=== PATIENT | male | born 1955 | race Caucasian/White ===

== ENCOUNTER 2023-04-22 09:17 | Outpatient (OUT) | payer MEDICARE, SELFPAY ==
--- NOTE | 2023-04-22 09:29 | MR_ITS ---
The [address] [address] Patient Name: SCOTT SMITH MRN: [id number] date: 1955 Sex: M Assigned Patient Location: MRI Current Patient Location: MRI Accession/Order Number: [id number] Exam Date: 04/22/2023 10:00 Report Date: 04/23/2023 14:00 At the request of: VENU PICKERING Procedure: MR foot LT wo/w con EXAM: MR foot LT wo/w con REASON FOR EXAM: neoplasm. TECHNIQUE: Multiplanar, multisequence imaging of the left foot was performed before and after the uneventful intravenous administration of gadolinium contrast COMPARISON: None. FINDINGS: Study mildly degraded by motion as well as large [id number]. At the palpable area concern, there is a somewhat heterogeneous mass within the subcutaneous tissues measuring 1.2 x 2.6 x 3.1 cm. No significant enhancement identified, although there is poor fat saturation at this level. This favors to represent adventitial bursitis. No abnormal marrow signal in the subjacent medial sesamoid bone. The remaining bone marrow signal is without acute fracture or osteonecrosis. The midfoot is congruent with mild osteoarthritis. The plantar musculature demonstrates normal bulk and signal. There is fusiform thickening and intermediate signal of the Achilles tendon with distal Achilles enthesophytes consistent with tendinosis. No tear. Mild chronic plantar fasciopathy with an inferior calcaneal spur. No tear. Mild thickening and intermediate signal of the peroneal tendons likely reflects tendinosis. No tear. The remaining ankle tendons are unremarkable. The Lisfranc ligament is intact. No definite abnormal osseous or soft tissue enhancement identified. MR/MR foot LT wo/w con IMPRESSION: 1. Probable adventitial bursitis identified along the plantar medial aspect of the first MTP joint. No aggressive features identified. No definite evidence of infection. 2. Incidental findings as above. Electronically authenticated by: HOUSTON CAMARENA Date: 04/23/2023 14:00
--- NOTE | 2023-04-22 09:34 | XR_ITS ---
The [address] [address] Patient Name: SCOTT SMITH MRN: [id number] date: 1955 Sex: M Assigned Patient Location: MRI Current Patient Location: MRI Accession/Order Number: [id number] Exam Date: 04/22/2023 09:45 Report Date: 04/22/2023 09:57 At the request of: VENU PICKERING Procedure: XR foreign body eye EXAMINATION: XR foreign body eye HISTORY: foreign body eye COMPARISON: No relevant comparison available. FINDINGS: ORBITS: Negative for a metallic foreign body. OTHER: Negative. XR/XR foreign body eye IMPRESSION: 1. No metallic foreign body within the orbits. Electronically authenticated by: MANASA HEAD Date: 04/22/2023 09:57
[2023-04-22 09:50] LABS: Estimated GFR (African America >60 (>=60); Estimated GFR (Non-African Ame 56 (>=60)
== END 2023-04-22 09:18 | disposition home or self-care (01) ==
LOC: MRI 09:19
PROVIDERS: PCP Family Medicine; Visit Provider Physician Assistant
DX: D49.2 Neoplasm of unspecified behavior of bone, soft tissue, and skin (principal)
CPT/HCPCS: 36415; 70030; 73720; 82565; A9575

== ENCOUNTER 2023-10-12 08:06 | Outpatient (OUT) | payer MEDICARE, SELFPAY ==
--- NOTE | 2023-10-12 | PCN_ITS ---
CARDIAC STRESS TEST Requesting Physician: Zuleyka Walker M.D. Procedure Date: 10/12/2023 PERFORMING PROVIDER: Zuleyka Walker M.D. REASON FOR STRESS TEST: Chest pain, shortness of breath, dyspnea on exertion. STRESS TEST TYPE: Lexiscan myocardial perfusion imaging. Resting EKG: Sinus bradycardia with sinus arrhythmia. Resting heart rate: 64 Peak heart rate: 110 Peak maximal heart rate: 72 Resting blood pressure: 136/70 Peak blood pressure: 182/76 ST changes: No EKG changes meeting the criteria of ischemia. Symptoms reported: None. Arrhythmias: PVCs, PACs. CONCLUSIONS: 1. Resting EKG demonstrates sinus bradycardia with sinus arrhythmia. 2. Treadmill stress test was non-diagnostic due to maximal heart rate not achieved. 3. Lexiscan stress test without definite evidence of ischemia. 4. Please refer to separately interpreted and reported nuclear myocardial perfusion imaging. [facility]
--- NOTE | 2023-10-12 | NM_ITS ---
Patient Name: SCOTT SMITH MR#: [id number] : 1955 Exam Date: 10/12/2023 Ordering Doctor: WINSTON WALKER M.D. RADIOLOGY REPORT PROCEDURE: NM ARMAND PERF SPECT REST STR COMPARISON: None. INDICATIONS: CHEST PAIN, UNSPECIFIED TECHNIQUE: Exam Description: Stress/Rest two day protocol gated SPECT Rest Imagin.9 mCi Tc-99m Cardiolite IV on 10/16/2023 Stress Imaging 26.3 mCi Tc-99m Cardiolite IV on 10/12/2023 Exercise Protocol: 0.4 mg Lexiscan given IV Heart Rate (bpm): Rest: 54 Max: 110 PMHR: 72 Blood Pressure: Rest: 136/70 Max: 182/76 Symptoms: Rest and peak stress ECG findings were normal and the exercise portion of the study was normal per attending physician Dr. Walker . For more details please see separate cardiac stress test report. FINDINGS: QUALITY OF STUDY: Good. PERFUSION DEFECT: LOCATION: Basal inferior. Basal inferolateral. Mid-inferior. Mid-inferolateral. Apical inferior. [place]. SIZE: Large (5 or more segments). SEVERITY: Severe. TYPE: Persistent. WALL MOTION: Normal. LV SIZE: Enlarged; EDV 155 mL. TID / TCD: None; 1.1 LVEF: Normal. Calculated EF 61%. SUMMARY: Myocardial perfusion imaging study has ABNORMAL findings. CONCLUSION: 1. 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 Dilated left ventricle, EDV 155 milliliters 3. Normal exercise test Dictated by: Jose Flynn MD on 10/16/2023 at 12:23 Approved by: Jose Flynn MD on 10/16/2023 at 12:27
--- OUTSIDE RECORDS SUMMARY | 2023-10-12 08:17 | XMS_ITS | CCD ---
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 Name Role Phone ZULEYKA CALLE Admitting Unavailable ALGHOTHSHITAL HALEAMAYady Attending Unavailable HOY, DURGA Primary Care Unavailable HOYDURGA Referring Unavailable HOY, DR CALIXTO Primary Care Unavailable SAMSA, DARIEN Admitting Unavailable SAMSA, DARIEN Attending Unavailable SAMSA, DARIEN Consulting Unavailable HOY, DR CALIXTO Admitting Unavailable HOY, DR CALIXTO Attending Unavailable HOY, DR CALIXTO Primary Care Unavailable HOY, DR CALIXTO Consulting Unavailable HOY, DR CALIXTO Admitting Unavailable HOY, DR CALIXTO Attending Unavailable HOY, DR CALIXTO Primary Care Unavailable HOY, DR CALIXTO Consulting Unavailable WEST, DR WIN Adkins Consulting Unavailable HOY, DR CALIXTO Admitting Unavailable HOY, DR CALIXTO Attending Unavailable HOY, DR CALIXTO Primary Care Unavailable ADAN, RELL Admitting Unavailable ADAN, RELL Attending Unavailable HOY, DR CALIXTO Primary Care Unavailable ADAN, RELL Consulting Unavailable HOY, DR CALIXTO Admitting Unavailable HOY, DR CALIXTO Attending Unavailable HOY, DR CALIXTO Primary Care Unavailable HOY, DR CALIXTO Admitting Unavailable HOY, DR CALIXTO Attending Unavailable HOY, DR CALIXTO Primary Care Unavailable HOY, DR CALIXTO Consulting Unavailable ADAN, RELL Admitting Unavailable ADAN, RELL Attending Unavailable HOY, DR CALIXTO Primary Care Unavailable ADAN, RELL Consulting Unavailable ALGHOTHANI, MOHAMAD Attending Unavailable Problems Active Problems Problem Classification Problem Date Documented Da te Episodic/Chronic Coronary atherosclerosis and other heart disease (1 source) Unstable angina; Translations: [UNSTABLE ANGINA] Onset: 07-24-2021 Chronic Disorders of lipid metabolism (1 source) Mixed hyperlipidemia; Translations: [MIXED HYPERLIPIDEMIA] Onset: 07-24-2021 Chronic Immunizations and screening for infectious disease (1 source) Encounter for immunization; Translations: [ENCOUNTER FOR IMMUNIZATION] Onset: 10-14-2021 Episodic Nonspecific chest pain (6 sources) Chest pain, unspecified; Translations: [CHEST PAIN UNSPECIFIED] Onset: 07-11-2021 Episodic Other circulatory disease (1 source) Other specified symptoms and signs involving the circulatory and respiratory systems; Translations: [OTH SPEC SX SIGNS INVLV CIRC RS] Onset: 10-10-2021 Episodic Other lower respiratory disease (6 sources) Shortness of breath; Translations: [SHORTNESS OF BREATH] Onset: 09-16-2021 Episodic Other lower respiratory disease (5 sources) Other forms of dyspnea; Translations: [OTHER FORMS OF DYSPNEA] Onset: 07-19-2021 Episodic Unclassified (1 source) COUGH, UNSPECIFIED; Translations: [COUGH, UNSPECIFIED] Onset: 10-10-2021 Unclassified (3 sources) CONTACT W/AND (SUSP) EXPOS COVID-19; Translations: [CONTACT W/AND (SUSP) EXPOS COVID-19] Onset: 07-24-2021 Viral infection (4 sources) COVID-19; Translations: [COVID-19] Onset: 10-11-2021 Past or Other Problems Problem Classification Problem Date Documented Da te Episodic/Chronic Unclassified (1 source) CONTACT W/AND (SUSP) EXPOS COVID-19; Translations: [CONTACT W/AND (SUSP) EXPOS COVID-19] Onset: 10-09-2021 Results Test Name Value Interpretation Reference Range Facility SYMPTOMATIC COVID-19 ANTIGEN on 10-09-2021 EUA Statement SEE BELOW Normal [facility] Comment on above: Result Comment: This test has not been FDA cleared or approved, but has been authorized by the FDA under an Emergency Use Authorization (EUA) for use by authorized laboratories certified under CLIA that meet the requirements to perform moderate or high complexity testing. This test has been authorized only for the detection of proteins from SARS-CoV-2, not for any other viruses or pathogens. The emergency use of this test is authorized for the duration of the declaration that circumstances exist justifying the authorization of emergency use of in vitro diagnostic tests for detection and/or diagnosis of Covid-19 under section 564(b)(1) of the Act, 21 U.S.C. 360bbb-3(b)(1), unless the declaration is terminated or authorization is revoked sooner. Performed By: #### C VDAGS #### [facility] [address] [place], [place] [address] Dr. Genia Madrigal SARS-CoV-2 (COVID-19) RNA ABA+probe Ql (Unsp spec) Positive Critically abnormal NEGATIVE [facility] Comment on above: Performed By: #### C VDAGS #### [facility] [address] [place], [place] [address] Dr. Genia Madrigal HEMOGLOBINon 09-16-2021 Hemoglobin (Bld) [Mass/Vol] 13.0 g/dL Critically low 14.0-18.0 [facility] Comment on above: Performed By: #### H GB #### [facility] [address] [place] [address] [address] Genia Madrigal Cardiovascular Lab Reporton 07-25-2021 Cardiovascular Lab Report [facility] Patient Name: Scott Garner MR #: [id number] [facility] Physician: Zuleyka Calle MD Department of Service Date: 07/24/2021 Medicine Birthdate: 1955 Division of Room #: CC Cardiology Adult Cardiovascular Services [facility] [address] [address] Cardiovascular Laboratory Report PROCEDURES PERFORMED: 1. Coronary angiography. 2. Right heart catheterization. FINAL IMPRESSIONS: 1. Nonobstructive CAD. 2. Normal right-sided pressures. RECOMMENDATIONS: 1. Optimization of medical management for nonobstructive CAD: Aspirin, high-intensity statin, beta odalys. 2. Followup with Rell Jean in clinic as scheduled. PROCEDURE IN DETAIL: After risks, benefits, and alternatives were explained, written informed consent was obtained. The patient was prepped and draped in usual sterile fashion. Using 1% lidocaine solution, local infiltration of anesthesia was achieved over the right internal jugular vein. Using a micropuncture kit with ultrasound guidance, access to the right internal jugular vein was obtained. Ellis catheter was advanced sequentially into the RA, RV, PA, and wedge positions, and pressures were measured. PA saturation was obtained. After reviewing the pressures, it was elected to conclude the right heart catheterization. We then proceeded with coronary angiography. Using 1% lidocaine, local infiltration was achieved over the right radial artery. Using a micropuncture kit, access to the right radial artery was obtained. Coronary angiography was performed using the JR5 and JL3.5 catheters. After reviewing the images, it was elected to conclude the procedure. Overall, the patient tolerated the procedure well. There were no overt complications. He was to be transferred to recovery in stable condition. FINDINGS: HEMODYNAMICS: 1. AO 95/57 (73). 2. RA 8/4 (5). 3. RV 28/0 (7). 4. PA 27/3. 5. PCWP 8. 6. CO 7.5. 7. CI 2.94. 8. PA sat 72%. 9. AO sat 97%. LEFT VENTRICULOGRAPHY: This was not performed. CORONARY ARTERIES: 1. Left main coronary artery: This arises from the left coronary cusp. It bifurcates into the left anterior descending and left circumflex coronary arteries. No significant stenosis noted. 2. Left anterior descending: There is 40% stenosis in the mid vessel, followed by a 50% stenosis in the distal vessel. 3. Left circumflex: There is 30% stenosis in the mid first obtuse marginal branch. Otherwise, no significant stenosis noted in the left circumflex. 4. Right coronary artery: This rises from the right coronary cusp. It is a dominant vessel. There appears to be 30% stenosis in the midportion of the vessel. INDICATIONS: Positive stress test, chest pain. Electronically Signed by: Zuleyka Calle MD 07/28/2021 07:19 P Zuleyka Calle MD Date Dict: 07/24/2021/07:35 P/Zuleyka Calle MD Date Trans: 07/25/2021 04:47 A/neftaly [id number] cc: Durga Fair M.D. [address] [place] [address] Normal [facility] BILIRUBIN CONJUGATED (DIRECT )on 07-22-2021 BILI, CONJUGATED 0.2 mg/dL Normal 0.0-0.3 [facility] Comment on above: Performed By: #### D PRESTON #### [facility] [address] [address] [address] Genia Madrigal Covid-19 PCR ([facility])on 06-26 SARS-CoV-2 (COVID-19) RNA ABA+probe Ql (Unsp spec) Not detected Normal NOT DETECTED [facility] Comment on above: Result Comment: When diagnostic testing is negative, the possibility of a false negative should be considered in the context of a patient's recent exposures and the presence of clinical signs and symptoms consistent with SARS-CoV-2. This test is not yet approved or cleared by the [place] Food and Drug Administration (FDA). This test was developed by [employer], [place], [place]. The performance characteristics of this test were validated by [facility]. The results are not intended to be used as the sole means for clinical diagnosis or patient management decisions. [facility] is authorized under Clinical Laboratory Improvement Amendments (CLIA) to perform high- complexity testing. This test is not yet approved or cleared by the [place] FDA. When there are no FDA-approved or cleared tests available, and other criteria are met, FDA can make tests available under an emergency access mechanism called an Emergency Use Authorization (EUA). The EUA for this test is supported by the [employer] of Health and Human Service's declaration that circumstances exist to justify the emergency use of in vitro diagnostics for the detection and/or diagnosis of the virus that causes COVID-19. This EUA will remain in effect for the duration of the COVID-19 declaration justifying emergency of IVDs, unless it is terminated or revoked by the FDA (after which the test may no longer be used). Performed By: #### C VDTBH #### [facility] [address] [place] [address] Dr. Genia Madrigal HEMOGRAM AND PLATELon 2021 Hematocrit (Bld) [Volume fraction] 37.9 % Critically low 42.0-54.0 [facility] Comment on above: Performed By: #### H H #### [facility] [address] [id number] [address] Genia Madrigal Hemoglobin (Bld) [Mass/Vol] 13.3 g/dL Critically low 14.0-18.0 [facility] Comment on above: Performed By: #### H H #### [facility] [address] [place] [address] Dr. Genia Madrigal MCH (RBC) [Entitic mass] 33.0 pg Normal 25.9-34.0 [facility] Comment on above: Performed By: #### H H #### [facility] [address] [place] [address] Dr. Genia Madrigal MCHC (RBC) [Mass/Vol] 35.1 g/dL Normal 29.9-35.2 [facility] Comment on above: Performed By: #### H H #### [facility] [address] [place] [address] Dr. Genia Madrigal MCV (RBC) [Entitic vol] 94.0 fL Normal 80.0-94.0 [facility] Comment on above: Performed By: #### H H #### [facility] [address] [place] [address] Dr. Genia Madrigal PLT 169 103/ul Normal 150-450 [facility] Comment on above: Performed By: #### H H #### [facility] [address] [place] [address] Dr. Genia Madrigal RBC 4.03 106/ul Critically low 4.70-6.10 [facility] Comment on above: Performed By: #### H H #### [facility] [address] [place] [address] Dr. Genia Madrigal WBC 6.0 103/ul Normal 4.0-11.0 [facility] Comment on above: Performed By: #### H H #### [facility] [address] [place] [address] Dr. Genia Madrigal LIPID PROFILEon 07-22-2021 CHOL-HDL RATIO NORM SEE BELOW Normal [facility] Comment on above: Result Comment: 3.3 - 4.4 LOW RISK 4.4 - 7.1 AVERAGE RISK 7.1 - 11.0 MODERATE RISK >11.0 HIGH RISK Performed By: #### L IPID, CMP #### [facility] [address] [address] [address] Genia Madrigal Cholesterol [Mass/Vol] 117 mg/dL Normal <=200 [facility] Comment on above: Performed By: #### L IPID, CMP #### [facility] [address] [address] [address] Genia Madrigal Cholesterol in HDL [Mass/Vol] 49 mg/dL Normal 40-60 [facility] Comment on above: Performed By: #### L IPID, CMP #### [facility] [address] [address] [address] Genia Madrigal Cholesterol in LDL [Mass/Vol] 52.8 mg/dL Normal [facility] Comment on above: Performed By: #### L IPID, CMP #### [facility] [address] [address] [address] Genia Madrigal Cholesterol.total/C holesterol in HDL [Mass ratio] 2.4 {ratio} Normal [facility] Comment on above: Performed By: #### L IPID, CMP #### [facility] [address] [address] [address] Genia Madrigal HDL NORMAL > or = 60 mg/dl - LO W CARDIOVASCULAR RISK <40 mg/dl - HIGH CARDIOVASCULAR RISK Normal [facility] Comment on above: Performed By: #### L IPID, CMP #### [facility] [address] [address] [address] Genia Madrigal LDL CALC NORMAL SEE BELOW Normal [facility] Comment on above: Result Comment: <100 mg/dl OPTIMAL 100 - 129 mg/dl NEAR OR ABOVE OPTIMAL 130 - 159 mg/dl BORDERLINE HIGH 160 - 189 mg/dl HIGH >190 mg/dl VERY HIGH Performed By: #### L IPID, CMP #### [facility] [address] [address] [address] Genia Madrigal Triglyceride [Mass/Vol] 76 mg/dL Normal <=150 [facility] Comment on above: Performed By: #### L IPID, CMP #### [facility] [address] [address] [address] Genia Madrigal VLDL CALC 15.2 mg/dL Normal [facility] Comment on above: Performed By: #### L IPID, CMP #### [facility] [address] [place] [address] Dr. Genia Madrigal PROF 14(COMP METB)on 022 Albumin [Mass/Vol] 3.9 g/dL Normal 3.4-5.0 [facility] Comment on above: Performed By: #### L IPID, CMP #### [facility] [address] [place] [address] Dr. Genia Madrigal Albumin/Globulin [Mass ratio] 1.1 {ratio} Normal [facility] Comment on above: Performed By: #### L IPID, CMP #### [facility] [address] [place] [address] Dr. Genia Madrigal ALP [Catalytic activity/Vol] 63 U/L Normal 46-116 [facility] Comment on above: Performed By: #### L IPID, CMP #### [facility] [address] [place] [address] Dr. Genia Madrigal ALT [Catalytic activity/Vol] 27 U/L Normal 16-63 [facility] Comment on above: Performed By: #### L IPID, CMP #### [facility] [address] [place] [address] Dr. Genia Madrigal Anion gap [Moles/Vol] 12.2 mmol/L Normal [facility] Comment on above: Performed By: #### L IPID, CMP #### [facility] [address] [place] [address] Dr. Genia Madrigal AST [Catalytic activity/Vol] 21 U/L Normal 15-37 [facility] Comment on above: Performed By: #### L IPID, CMP #### [facility] [address] [place] [address] Dr. Genia Madrigal Bilirubin [Mass/Vol] 0.8 mg/dL Normal 0.2-1.3 [facility] Comment on above: Performed By: #### L IPID, CMP #### [facility] [address] [place] [address] Dr. Genia Madrigal Calcium [Mass/Vol] 8.1 mg/dL Critically low 8.5-10.1 [facility] Comment on above: Performed By: #### L IPID, CMP #### [facility] [address] [place] [address] Dr. Genia Madrigal Chloride [Moles/Vol] 107 mmol/L Normal 98-107 [facility] Comment on above: Performed By: #### L IPID, CMP #### [facility] [address] [place] [address] Dr. Genia Madrigal CO2 [Moles/Vol] 26.8 mmol/L Normal 22.0-30.0 [facility] Comment on above: Performed By: #### L IPID, CMP #### [facility] [address] [place] [address] Dr. Genia Madrigal Creatinine [Mass/Vol] 1.19 mg/dL Normal 0.66-1.25 [facility] Comment on above: Performed By: #### L IPID, CMP #### [facility] [address] [place] [address] Dr. Genia Madrigal EGFR-AF TOGOLESE >60 Normal >=60 [facility] Comment on above: Performed By: #### L IPID, CMP #### [facility] [address] [place] [address] Dr. Genia Madrigal EGFR-NON AF TOGOLESE >60 Normal >=60 [facility] Comment on above: Performed By: #### L IPID, CMP #### [facility] [address] [place] [address] Dr. Genai Madrigal Globulin (S) [Mass/Vol] 3.5 g/dL Normal [facility] Comment on above: Performed By: #### L IPID, CMP #### [facility] [address] [place] [address] Dr. Genia Madrigal Glucose [Mass/Vol] 98 mg/dL Normal 74-106 [facility] Comment on above: Performed By: #### L IPID, CMP #### [facility] [address] [place] [address] Dr. Genia Madrigal Potassium [Moles/Vol] 4.0 mmol/L Normal 3.4-5.0 [facility] Comment on above: Performed By: #### L IPID, CMP #### [facility] [address] [address] [address] Genia Madrigal Protein [Mass/Vol] 7.4 g/dL Normal 6.1-8.2 [facility] Comment on above: Performed By: #### L IPID, CMP #### [facility] [address] [address] [address] Genia Madrigal Sodium [Moles/Vol] 142 mmol/L Normal 137-145 [facility] Comment on above: Performed By: #### L IPID, CMP #### [facility] [address] [place] [address] Dr. Genia Madrigal Urea nitrogen [Mass/Vol] 27.0 mg/dL Critically high 7.0-18.0 [facility] Comment on above: Performed By: #### L IPID, CMP #### [facility] [address] [address] [address] Genia Madrigal Urea nitrogen/Creatinine [Mass ratio] 22.7 mg/mg Normal [facility] Comment on above: Performed By: #### L IPID, CMP #### [facility] [address] [place] [address] Dr. Genia Madrigal ECHOCARDIO M/2D COMPLETEon 0 07-19-2021 ECHOCARDIO M/2D COMPLETE Patient: SCOTT GARNER Exam Date: 07/19/2021 : 1955 Gender:M Ordering : RELL JEAN Admission #: [id number] Family : Order #: [id number] CLICK HERE TO VIEW EXAM ECHOCARDIOGRAM REPORT PROCEDURE: CARDIO PULMONARY ECHOCARDIO M/2D COMP INDICATIONS: Dyspnea on exertion COMPARISON: None. DESCRIPTION: COMPLETE ECHOCARDIOGRAM Real-time transthoracic echocardiography with 2D, M-mode, spectral and color flow Doppler performed. QUALITY: Technical quality was good. LEFT VENTRICLE: Normal chamber size. Normal left ventricular wall thickness. Global left ventricular systolic function is normal. Calculated left ventricular ejection fraction is 65% LV EF: DIASTOLIC: Normal diastolic function. ATRIAL SEPTUM: LEFT ATRIUM: Normal chamber size. RIGHT ATRIUM: Normal chamber size. RIGHT VENTRICLE: Normal chamber size. Normal right ventricular systolic function. TRICUSPID VALVE: Normal mobility and thickness. No stenosis with trivial regurgitation. No evidence of pulmonary hypertension. RVSP 25 mmHg. MITRAL VALVE: Normal mobility and thickness. No mitral valve prolapse. No evidence of mitral valve stenosis. There is no mitral annular calcification. No mitral regurgitation. AORTIC VALVE: Normal trileaflet appearance. No visible sclerosis. Normal leaflet mobility. No evidence of aortic valve stenosis. DVI 0.7.No aortic regurgitation. AORTIC ROOT: Normal diameter and appearance. PULMONIC VALVE: Normal thickness and mobility. No stenosis. No regurgitation. PERICARDIUM: No evidence of pericardial effusion. IVC: Collapses with inspirations. Normal size. PLEURA: CONCLUSION: 1. Normal ventricular function. LVEF is 65%. 2. No valvular dysfunction. 3. Normal right-sided pressures. 4. No pericardial effusion. Adult Echocardiography Procedure Report Left Ventricle LVEDD (3.7 - 5.6 cm): 5.79 cm LVESD (2.2 - 4.0 cm): 3.56 cm LVIVS thickness (0.6 - 1.2 cm): 1.01 cm LVPW thickness (0.5 - 1.0 cm): 9.83 mm e': 11.20 cm/s E - e': 6.80 LVOT Area (cm2): 4.52 cm2 LVOT Diameter 2.40 cm Left Ventricular Ejection Fraction: 65 % Left Atrium LA Volume Index (2D A2C): 27.20 ml/m2 Left Atrium Systolic Dimension: 3.90 cm Left Atrium Systolic Area(A2C): 21.30 cm2 Left Atrium Systolic Area(A4C): 20.80 cm2 Left Atrium Systolic Volume(A2C): 19680 mm3 Left Atrium Systolic Volume(A4C): 00182 mm3 Mitral Valve MV E to A Ratio: 0.80 Mitral Valve A-Wave Peak Velocity: 91.80 cm/s Mitral Valve E-Wave Peak Velocity: 76.50 cm/s Right Ventricle RV Internal Diastolic Dimension: 3.89 cm Aorta AO Root Diam: 3.40 cm Aortic Valve AoV Area (Peak Adam): 3.15 cm2 Peak Velocity(Antegrade Flow): 114.00 cm/s Peak Gradient(Antegrade Flow): 5 mm[Hg] Tricuspid Valve Pulmonic Valve Peak Velocity: 114.00 cm/s Peak Gradient: 5 mm[Hg] Right Atrium Dictated by: Gordo Bahena M.D. on 07/22/2021 at 09:00 Approved by: Gordo Bahena M.D. on 07/22/2021 at 09:02 Normal [facility] NM STRESS/REST MULTIon 07-11 NM STRESS/REST MULTI Patient: SCOTT GARNER Exam Date: 07/11/2021 : 1955 Gender:M Ordering : DR DURGA FAIR . Admission #: [id number] Family : Order #: [id number] CLICK HERE TO VIEW EXAM RADIOLOGY REPORT PROCEDURE: RADIONUCLIDE IMAGING STRESS/REST MULTI COMPARISON: None. INDICATIONS: Chest pain TECHNIQUE: Exam Description: Stress/Rest two day protocol gated SPECT Rest Imagin.6 mCi Tc-99m Cardiolite IV on 07/12/2021 Stress Imaging 26.0 mCi Tc-99m Cardiolite IV on 07/12/2021 Exercise Protocol: Jimmy Heart Rate (bpm): Rest: 58 Max: 137 PMHR: 88 Blood Pressure: Rest: 112/66 Max: 192/68 Exercise Time: Minutes: 5 Seconds: 31 Stage Reached: Stage: 2 Mets 7.0 Symptoms: chest pain Rest and peak stress ECG findings were abnormal and the exercise portion of the study was abnormal per attending physician Dr. Bee . For more details please see separate cardiac stress test report. FINDINGS: QUALITY OF STUDY: Good. PERFUSION DEFECT: LOCATION: Basal inferior. Mid-inferior. Apical inferior. SIZE: Medium (3-4 segments). SEVERITY: Moderate. TYPE: Persistent. WALL MOTION: Normal. LV SIZE: Enlarged; EDV 129 mL. TID / TCD: None; 0.9 LVEF: Normal. Calculated EF 61%. SUMMARY: Myocardial perfusion imaging study has ABNORMAL findings. CONCLUSION: 1. Fixed defect in the inferior wall extending to the apex, RCA distribution 2. No reversible ischemia 3. Mild left ventricular enlargement with an end-diastolic volume of 129 milliliters 4. Abnormal exercise test Dictated by: Win Flynn MD on 07/12/2021 at 09:14 Approved by: Win Flynn MD on 07/12/2021 at 09:16 Normal [facility] Encounters Encounter Date Encounter Type Care Provider Facility Start: 09-11-2023 ambulatory ZULEYKA CALLE [facility] Start: 10-11-2021 End: 10-11-[address] DURGA FAIR Facility:[facility] Start: 10-09-2021 End: 10-09-[address] DURGA FAIR Facility:[facility] Start: 09-16-2021 End: 09-17-[address] DURGA FAIR Facility:[facility] Start: 07-24-2021 Encounter for other preprocedural examination RELL JEAN [facility] Start: 07-24-2021 End: 07-25-2021 ambulatory ZULEYKA CALLE Facility:[facility] Start: 07-22-2021 End: 07-23-2021 ambulatory RELL JEAN Facility:[facility] Start: 07-22-2021 End: 07-23-2021 Encounter for other preprocedural examination RELL JEAN Facility:[facility] Start: 07-19-2021 End: 07-20-2021 ambulatory RELL JEAN Facility:[facility] Start: 07-12-[address] DURGA FAIR Facility :[facility] Start: 07-11-2021 End: 07-12-[address] DURGA FAIR Facility:[facility] Start: 03-21-[address] DURGA FAIR Facility :[facility] Payers Date Payer Category Payer Self-pay [id number] 1959 Unknown [id number] 1955 Unknown [id number] 2.16.8 [id number] 1955 Unknown [id number] 2.16.84 [id number] 1955 Unknown [id number] 2.16.84 [id number] 1955 Unknown [id number] 2.16.84 [id number] 1955 Unknown [id number] 2.16.84 [id number] 1955 Unknown [id number] 2.16.84 [id number] 1955 Unknown [id number] 2.16.84 [id number] 1955 Unknown [id number] 2.16.84 [id number] 1955 Unknown [id number] 2.16.84 [id number] Summary Purpose Family History No Family History Records FoundNo Family History Records FoundNo Family History Records Found Advance Directives No Advanced Directives Records FoundNo Advanced Directives Records FoundNo Advanced Directives Records Found Additional Source Comments (unrecognized sect ion and content) No Status Records FoundNo Status Records FoundNo Status Records Found INFORMATION SOURCE (unrecogn ized section and content) DATE CREATED AUTHOR 07/30/2021 [facility] DATE CREATED AUTHOR AUTHOR'S ORGANIZ ATION 10/14/2021 [facility] DATE CREATED AUTHOR AUTHOR'S ORGANIZ ATION 09/17/2023 [facility] FOR RECORDS PERTAINING TO PATIENTS WHO ARE OR HAVE BEEN ENROLLED IN A CHEMICAL DEPENDENCY/SUBSTANCEABUSE PROGRAM, SOME INFORMATION MAY BE OMITTED. This clinical summary was aggregated from multiple sources. Caution should be exercised in using it in the provision of clinical care. This summary normalizes information from multiple sources, and as a consequence, information in this document may materially change the coding, format and clinical context of patient data. In addition, data may be omitted in some cases. CLINICAL DECISIONS SHOULD BE BASED ON THE PRIMARY CLINICAL RECORDS. [email or web address] [facility]. provides no warranty or guarantee of the accuracy or completeness of information in this document.
[2023-10-12] MEDS: REGADENOSON 0.4 MG/5 ML SYRINGE 0.400000000000000022 MG IV (09:57)
== END 2023-10-12 08:07 | disposition home or self-care (01) ==
LOC: CARD 08:06
PROVIDERS: PCP Family Medicine; Visit Provider Internal Medicine Cardiovascular Disease
DX: R07.9 Chest pain, unspecified (principal); R06.02 Shortness of breath
CPT/HCPCS: 78452; 93017; A9500; J2785

== ENCOUNTER 2023-10-16 08:03 | Outpatient (OUT) | payer MEDICARE, SELFPAY ==
--- NOTE | 2023-10-16 08:00 | CA_ITS ---
Patient Name: SCOTT SMITH MR#: [id number] : 1955 Exam Date: 10/16/2023 Ordering Doctor: WINSTON CALLE M.D. ECHOCARDIOGRAM REPORT PROCEDURE: CA ECHO DOPPLER COMPLETE INDICATIONS: Shortness of breath, CAD, hypertension COMPARISON: None. DESCRIPTION: COMPLETE ECHOCARDIOGRAM Real-time transthoracic echocardiography with 2D, M-mode, spectral and color flow Doppler performed. QUALITY: Technical quality was good. 74 , 293#, BP 124/62 LEFT VENTRICLE: Normal chamber size. Normal left ventricular wall thickness. Normal systolic function. LV EF: Normal left ventricular ejection fraction, (55%). DIASTOLIC: Normal diastolic function. ATRIAL SEPTUM: Visually appears intact. LEFT ATRIUM: Normal chamber size. RIGHT ATRIUM: Normal chamber size. RIGHT VENTRICLE: Normal chamber size. Normal right ventricular systolic function. TRICUSPID VALVE: Normal mobility and thickness. No stenosis with trivial regurgitation. MITRAL VALVE: Normal mobility and thickness. No evidence of mitral valve stenosis. There is no mitral annular calcification. Trivial mitral regurgitation. AORTIC VALVE: Normal trileaflet appearance. No visible sclerosis. Normal leaflet mobility. No evidence of aortic valve stenosis. No aortic regurgitation. AORTIC ROOT: Normal diameter and appearance. Ascending aorta is normal in size. PULMONIC VALVE: Normal thickness and mobility. No stenosis. No regurgitation. PERICARDIUM: No evidence of pericardial effusion. IVC: Collapses with inspirations. IVC is normal in size. PLEURA: CONCLUSION: 1. Normal ventricular size and systolic function. LVEF is 55%. 2. Normal diastolic function. 3. No significant valvular dysfunction. Adult Echocardiography Procedure Report Left Ventricle LVEDD (3.7 - 5.6 cm): 6.18 cm LVESD (2.2 - 4.0 cm): 4.34 cm LVIVS thickness (0.6 - 1.2 cm): 0.97 cm LVPW thickness (0.5 - 1.0 cm): 0.85 cm e': 0.11 m/s E - e': 7.36 LVOT Max Gradient: 3.37 mm[Hg] LVOT Area (cm2): 0.92 m/s Peak Velocity (LVOT): 0.92 m/s Mean Velocity (LVOT): 0.55 m/s LVOT Diameter 2.46 cm Left Atrium LA Volume Index (2D A2C): 29.67 ml/m2 Left Atrium Systolic Dimension: 3.90 cm Mitral Valve MV E to A Ratio: 1.03 Mitral Valve A-Wave Peak Velocity: 0.80 m/s Mitral Valve E-Wave Peak Velocity: 0.82 m/s Right Ventricle Aorta AO Root Diam: 3.88 cm Ascending Ao Diam: 3.12 cm Aortic Valve AoV Area (Peak Adam): 3.33 cm2, 3.33 cm2 AoV Area (VTI): 3.01 cm2, 3.01 cm2 Peak Velocity(Antegrade Flow): 1.31 m/s Peak Gradient(Antegrade Flow): 6.86 mm[Hg] Mean Velocity(Antegrade Flow): 0.89 m/s Mean Gradient(Antegrade Flow): 3.67 mm[Hg] Velocity Time Integral: 35.25 cm Tricuspid Valve Pulmonic Valve Mean Gradient: 2.48 mm[Hg] Mean Velocity: 0.73 m/s Peak Velocity: 1.16 m/s, 1.22 m/s Peak Gradient: 5.93 mm[Hg], 5.42 mm[Hg] Right Atrium Right Atrium Systolic Pressure: 88.82 ml, 88.82 ml Dictated by: Gordo Bahena M.D. on 10/16/2023 at 18:38 Approved by: Gordo Bahena M.D. on 10/16/2023 at 18:40
--- OUTSIDE RECORDS SUMMARY | 2023-10-16 08:08 | XMS_ITS ---
Patient Summarization (C-CDA 2.1 CCD) Created on: October 16, 2023 SCOTT GARNER : 1955 Sex: Male Author Organization Sample organization Care Team Providers Care Cork Insulator Name Role Phone ZULEYKA CALLE Admitting Unavailable ZULEYKA CALLE Attending Unavailable HOYDURGA Primary Care Unavailable HOYDURGA Referring Unavailable HOY, [...] Primary Care Unavailable ADAN, RELL Consulting Unavailable ZULEYKA CALLE Attending Unavailable Encounters Encounter Date Encounter Type Care Provider Facility Start: 09-11-2023 ambulatory ZULEYKA CALLE [facility] Start: 10-11-2021 End: 10-11-[address] DURGA LANDIN Facility:[facility] Start: 10-09-2021 End: 10-09-[address] DURGA LANDIN Facility:[facility] Start: 09-16-2021 End: 09-17-[address] DURGA LANDIN Facility:[facility] Start: 07-24-2021 Encounter for other preprocedural examination RELL JEAN [facility] Start: 07-24-2021 End: 07-25-2021 ambulatory ZULEYKA CALLE Facility:[facility] Start: 07-22-2021 End: 07-23-2021 ambulatory RELL JEAN Facility: Start: 07-22-2021 End: 07-23-2021 Encounter for other preprocedural examination RELL JEAN Facility:[facility] Start: 07-19-2021 End: 07-20-2021 ambulatory RELL JEAN Facility:[facility] Start: 07-12-[address] DURGA LANDIN Facility :[facility] Start: 07-11-2021 End: 07-12-[address] DURGA LANDIN Facility:[facility] Start: 03-21-[address] DURGA LANDIN Facility : Payers Date Payer Category Payer Self-pay [id number] Unknown [id number] 1955 Unknown [id number] 2.16.8 [id number] 1955 Unknown [id number] 2.16.84 [id number] 1955 Unknown [id number] 2.16.84 [id number] 1955 Unknown [id number] 2.16.84 [id number] 1955 Unknown [id number] 2.16.84 [id number] 1955 Unknown [id number] 2.16.84 [id number] 1955 Unknown [id number] 2.16.84 [id number] 1955 Unknown [id number] 2.16.84 [id number] 1955 Unknown [id number] 2.16.84 [id number] Problems Active Problems Problem Classification Problem Date [...] 10-09-2021 EUA Statement SEE BELOW Normal [facility] Comment on above: Result Comment: This [...] sooner. Performed By: #### C VDAGS #### [facility] [address] [place] [address] Dr. Genia Madrigal SARS-CoV-2 (COVID-19) RNA ABA+probe Ql (Unsp spec) Positive Critically abnormal NEGATIVE [facility] Comment on above: Performed By: #### C VDAGS #### [facility] [address] [place] [address] Dr. Genia Madrigal HEMOGLOBINon 09-16-2021 Hemoglobin (Bld) [Mass/Vol] 13.0 g/dL Critically low 14.0-18.0 [facility] Comment on above: Performed By: #### H GB #### [facility] [address] [place] [address] Dr. Genia Madrigal Cardiovascular Lab Reporton 07-25-2021 Cardiovascular Lab Report [facility] Patient Name: Scott Garner MR #: [id number] [facility] Physician: Zuleyka Calle MD Department of Service Date: 07/24/2021 Medicine Birthdate: 1955 Division of Room #: CC Cardiology Adult Cardiovascular Services [place] [address] Cardiovascular Laboratory Report PROCEDURES PERFORMED: 1. Coronary angiography. 2. Right heart catheterization. FINAL IMPRESSIONS: 1. Nonobstructive CAD. 2. Normal right-sided pressures. RECOMMENDATIONS: 1. Optimization of medical management for nonobstructive CAD: Aspirin, high-intensity statin, beta odalys. 2. Followup with Rell Jean, in clinic as scheduled. PROCEDURE IN DETAIL: [...] Calle MD Date Trans: 07/25/2021 04:47 A/neftaly [id number] cc: Durga Landin M.D. [facility] [address] [place] [address] Normal [facility] BILIRUBIN CONJUGATED (DIRECT )on 07-22-2021 BILI, CONJUGATED 0.2 mg/dL Normal 0.0-0.3 [facility] Comment on above: Performed By: #### D PRESTON #### [facility] [address] [place] [address] [address] Genia Madrigal Covid-19 PCR ([facility])on 06-26 SARS-CoV-2 (COVID-19) RNA ABA+probe Ql (Unsp spec) Not detected Normal NOT DETECTED [facility] Comment on above: Result Comment: When diagnostic testing is negative, the possibility of a false negative should be considered in the context of a patient's recent exposures and the presence of clinical signs and symptoms consistent with SARS-CoV-2. This test is not yet approved or cleared by the [place] Food and Drug Administration (FDA). This test was developed by [employer], [place], [place]. The performance characteristics of this test were validated by [facility]. The results are not intended to be used as the sole means for clinical diagnosis or patient management decisions. [facility] is authorized under Clinical Laboratory Improvement [...] for this test is supported by the Administrative Support Assoc of Health and Human Service's declaration that [...] used). Performed By: #### C VDTBH #### [facility] [address] [place] [address] Dr. Genia Madrigal HEMOGRAM AND PLATELon 2021 Hematocrit (Bld) [Volume fraction] 37.9 % Critically low 42.0-54.0 [facility] Comment on above: Performed By: #### H H #### [facility] [address] [place] [address] Dr. Genia Madrigal Hemoglobin (Bld) [Mass/Vol] 13.3 g/dL Critically low 14.0-18.0 [facility] Comment on above: Performed By: #### H H #### [facility] [address] [place] [address] Dr. Genia Madrigal MCH (RBC) [Entitic mass] 33.0 pg Normal 25.9-34.0 [facility] Comment on above: Performed By: #### H H #### [facility] [address] [place] [address] Dr. Genia Madrigal MCHC (RBC) [Mass/Vol] 35.1 g/dL Normal 29.9-35.2 [facility] Comment on above: Performed By: #### H H #### [facility] [address] [place] [address] Dr. Genia Madrigal MCV (RBC) [Entitic vol] 94.0 fL Normal 80.0-94.0 [facility] Comment on above: Performed By: #### H H #### [facility] [address] [place] [address] Dr. Genia Madrigal PLT 169 103/ul Normal 150-450 [facility] Comment on above: Performed By: #### H H #### [facility] [address] [place] [address] Dr. Genia Madrigal RBC 4.03 106/ul Critically low 4.70-6.10 [facility] Comment on above: Performed By: #### H H #### [facility] [address] [place] [address] Dr. Genia Madrigal WBC 6.0 103/ul Normal 4.0-11.0 [facility] Comment on above: Performed By: #### H H #### [facility] [address] [address] [address] Genia Madrigal LIPID PROFILEon 07-22-2021 CHOL-HDL RATIO NORM SEE BELOW Normal [facility] Comment on above: Result Comment: 3.3 - 4.4 LOW RISK 4.4 - 7.1 AVERAGE RISK 7.1 - 11.0 MODERATE RISK >11.0 HIGH RISK Performed By: #### L IPID, CMP #### [facility] [address] [place], [place] [address] Dr. Genia Madrigal Cholesterol [Mass/Vol] 117 mg/dL Normal <=200 [facility] Comment on above: Performed By: #### L IPID, CMP #### [facility] [address] [address] [address] Genia Madrigal Cholesterol in HDL [Mass/Vol] 49 mg/dL Normal 40-60 [facility] Comment on above: Performed By: #### L IPID, CMP #### [facility] [address] [place] [address] [address] Genia Madrigal Cholesterol in LDL [Mass/Vol] 52.8 mg/dL Normal [facility] Comment on above: Performed By: #### L IPID, CMP #### [facility] [address] [place], [place] [address] Dr. Genia Madrigal Cholesterol.total/C holesterol in HDL [Mass ratio] 2.4 {ratio} Normal [facility] Comment on above: Performed By: #### L IPID, CMP #### [facility] [address] [place], [place] [address] Dr. Genia Madrigal HDL NORMAL > or = 60 mg/dl - LO W CARDIOVASCULAR RISK <40 mg/dl - HIGH CARDIOVASCULAR RISK Normal [facility] Comment on above: Performed By: #### L IPID, CMP #### [facility] [address] [place], [place] [address] Dr. Genia Madrigal LDL CALC NORMAL SEE BELOW Normal [facility] Comment on above: Result Comment: <100 mg/dl OPTIMAL 100 - 129 mg/dl NEAR OR ABOVE OPTIMAL 130 - 159 mg/dl BORDERLINE HIGH 160 - 189 mg/dl HIGH >190 mg/dl VERY HIGH Performed By: #### L IPID, CMP #### [facility] [address] [place] [address] Dr. Genia Madrigal Triglyceride [Mass/Vol] 76 mg/dL Normal <=150 [facility] Comment on above: Performed By: #### L IPID, CMP #### [facility] [address] [place] [address] Dr. Genia Madrigal VLDL CALC 15.2 mg/dL Normal [facility] Comment on above: Performed By: #### L IPID, CMP #### [facility] [address] [place] [address] Dr. Genia Madrigal PROF 14(COMP METB)on 022 Albumin [Mass/Vol] 3.9 g/dL Normal 3.4-5.0 [facility] Comment on above: Performed By: #### L IPID, CMP #### [facility] [address] [place] [address] Dr. Genia Madrigal Albumin/Globulin [Mass ratio] 1.1 {ratio} Normal [facility] Comment on above: Performed By: #### L IPID, CMP #### [facility] [address] [place] [address] Dr. Genia Madrigal ALP [Catalytic activity/Vol] 63 U/L Normal 46-116 [facility] Comment on above: Performed By: #### L IPID, CMP #### [facility] [address] [place] [address] Dr. Genia Madrigal ALT [Catalytic activity/Vol] 27 U/L Normal 16-63 [facility] Comment on above: Performed By: #### L IPID, CMP #### [facility] [address] [place] [address] Dr. Genia Madrigal Anion gap [Moles/Vol] 12.2 mmol/L Normal [facility] Comment on above: Performed By: #### L IPID, CMP #### [facility] [address] [place] [address] Dr. Genia Madrigal AST [Catalytic activity/Vol] 21 U/L Normal 15-37 [facility] Comment on above: Performed By: #### L IPID, CMP #### [facility] [address] [place] [address] Dr. Genia Madrigal Bilirubin [Mass/Vol] 0.8 mg/dL Normal 0.2-1.3 [facility] Comment on above: Performed By: #### L IPID, CMP #### [facility] [address] [place] [address] Dr. Genia Madrigal Calcium [Mass/Vol] 8.1 mg/dL Critically low 8.5-10.1 [facility] Comment on above: Performed By: #### L IPID, CMP #### [facility] [address] [place] [address] Dr. Genia Madrigal Chloride [Moles/Vol] 107 mmol/L Normal 98-107 [facility] Comment on above: Performed By: #### L IPID, CMP #### [facility] [address] [place] [address] Dr. Genia Madrigal CO2 [Moles/Vol] 26.8 mmol/L Normal 22.0-30.0 [facility] Comment on above: Performed By: #### L IPID, CMP #### [facility] [address] [place] [address] Dr. Genia Madrigal Creatinine [Mass/Vol] 1.19 mg/dL Normal 0.66-1.25 [facility] Comment on above: Performed By: #### L IPID, CMP #### [facility] [address] [place] [address] Dr. Genia Madrigal EGFR-AF [place] >60 Normal >=60 [facility] Comment on above: Performed By: #### L IPID, CMP #### [facility] [address] [place] [address] Dr. Genia Madrigal EGFR-NON AF [place] >60 Normal >=60 [facility] Comment on above: Performed By: #### L IPID, CMP #### [facility] [address] [place] [address] Dr. Genia Madrigal Globulin (S) [Mass/Vol] 3.5 g/dL Normal [facility] Comment on above: Performed By: #### L IPID, CMP #### [facility] [address] [place] [address] Dr. Genia Madrigal Glucose [Mass/Vol] 98 mg/dL Normal 74-106 [facility] Comment on above: Performed By: #### L IPID, CMP #### [facility] [address] [place] [address] Dr. Genia Madrigal Potassium [Moles/Vol] 4.0 mmol/L Normal 3.4-5.0 [facility] Comment on above: Performed By: #### L IPID, CMP #### [facility] [address] [place] [address] Dr. Genia Madrigal Protein [Mass/Vol] 7.4 g/dL Normal 6.1-8.2 [facility] Comment on above: Performed By: #### L IPID, CMP #### [facility] [address] [place] [address] Dr. Genia Madrigal Sodium [Moles/Vol] 142 mmol/L Normal 137-145 [facility] Comment on above: Performed By: #### L IPID, CMP #### [facility] [address] [place] [address] Dr. Genia Madrigal Urea nitrogen [Mass/Vol] 27.0 mg/dL Critically high 7.0-18.0 [facility] Comment on above: Performed By: #### L IPID, CMP #### [facility] [address] [place] [address] Dr. Genia Madrigal Urea nitrogen/Creatinine [Mass ratio] 22.7 mg/mg Normal [facility] Comment on above: Performed By: #### L IPID, CMP #### [facility] [address] [place] [address] Dr. Genia Madrigal ECHOCARDIO M/2D COMPLETEon 0 07-19-2021 ECHOCARDIO M/2D COMPLETE Patient: SCOTT GARNEREthan Exam Date: 07/19/2021 : 1955 Gender:M Ordering : RELL JEAN Admission #: [id number] Family : Order #: [id number] CLICK HERE TO VIEW EXAM ECHOCARDIOGRAM REPORT [...] Area(A4C): 20.80 cm2 Left Atrium Systolic Volume(A2C): 19811 mm3 Left Atrium Systolic Volume(A4C): 08718 mm3 Mitral Valve MV E to A [...] Bahena M.D. on 07/22/2021 at 09:02 Normal [facility] NM STRESS/REST MULTIon 07-11 NM STRESS/REST MULTI Patient: SCOTT GARNER Exam Date: 07/11/2021 : 1955 Gender:M Ordering : DR DURGA LANDIN . Admission #: [id number] Family : Order #: [id number] CLICK HERE TO VIEW EXAM RADIOLOGY REPORT [...] MD on 07/12/2021 at 09:16 Normal [facility] Summary Purpose Family History No Family History Records FoundNo Family History Records FoundNo Family History Records Found Advance Directives No Advanced Directives Records FoundNo Advanced Directives Records FoundNo Advanced Directives Records Found Additional Source Comments (unrecognized sect ion and content) No Status Records FoundNo Status Records FoundNo Status Records Found INFORMATION SOURCE (unrecogn ized section and content) DATE CREATED AUTHOR 07/30/2021 [facility] DATE CREATED AUTHOR AUTHOR'S ORGANIZ ATION 10/14/2021 [facility] DATE CREATED AUTHOR AUTHOR'S ORGANIZ ATION 09/17/2023 [facility] FOR RECORDS PERTAINING TO PATIENTS WHO ARE [...] BE BASED ON THE PRIMARY CLINICAL RECORDS. [employer] provides no warranty or guarantee of the accuracy or completeness of information in this document.
== END 2023-10-16 08:04 | disposition home or self-care (01) ==
LOC: NM 08:04
PROVIDERS: PCP Family Medicine; Visit Provider Internal Medicine Cardiovascular Disease
DX: R07.9 Chest pain, unspecified (principal); R06.02 Shortness of breath
CPT/HCPCS: 93306

== ENCOUNTER 2025-01-25 11:44 | Outpatient (OUT) | payer MEDICARE, SELFPAY ==
--- OUTSIDE RECORDS SUMMARY | 2024-01-19 06:00 | XMS_ITS ---
Author Organization [facility] [place] [facility] in [place] Address [address] [place] [address] Care Team Providers Care Heat Sealing Machine Operator Name Role Phone Ronak Landin Primary Care Provider Jordon Bee [phone] REASON FOR VISIT 1YEAR-COPD Encounters Encounter Location Date Provider Diagnosis Pulmonary Medicine [address] [address] 01/19/2024 Jordon Bee Plan Of Treatment No Information Progress Notes * Joo GARNER LDOB:1955 (69 yo M)Acc No.[id number]:01/19/2024 UNLOCKED PROGRESS NOTE Follow Up Patient: Joo MAYEN Provider: Ervin Bee DO :1955 A ge:68 Y S ex:Male Date:01/19/2024 Address:[address] [facility] [place], [id number] Pcp:Ronak Landin Subjective: * Chief Complaints: * 1 . 1YEAR-COPD. * Medical History: Objective: * Vitals: Assessment: Plan: * Treatment: * * Electronic signature of Zuri Bee DO on 01/25/2025 at 11:47 AM EDT Sign off status: Pending Visit Status: R /S By O/P (Rescheduled by Office/Provider) * Provider: Ervin Bee DO Date: 0 01/19/2024 Generated for Ralph del toro/Matthew/Sharaditting on: 1 11:47 AM EDT
--- OUTSIDE RECORDS SUMMARY | 2024-01-21 05:00 | XMS_ITS ---
Author Organization [facility] in [place] Address [address] [place] [id number] Care Team Providers Care Batch Blender Name Role Phone Ronak Landin Primary Care Provider [phone] Jordon Bee [phone] REASON FOR VISIT 1YEAR-COPD Encounters Encounter Location Date Provider Diagnosis Pulmonary Medicine [address] [address] 01/21/2024 Jordon Bee Plan Of Treatment No Information Progress Notes * PASCUAL Joo LDOB:1955 (69 yo M)Acc No.[id number]:01/21/2024 UNLOCKED PROGRESS NOTE Follow Up Patient: Joo MAYEN Provider: Ervin Bee DO :1955 A ge:68 Y S ex:Male Date:01/21/2024 Address:[address] [place], [id number] Pcp:Ronak Landin Subjective: * Chief Complaints: * 1 . 1YEAR-COPD. * Medical History: Objective: * Vitals: Assessment: Plan: * Treatment: * * Electronic signature of Zuir Bee DO on 01/25/2025 at 11:04 AM EDT Sign off status: Pending Visit Status: R /S (Rescheduled) * Provider: Ervin Bee DO Date: 0 01/21/2024 Generated for Printi ng/Faxing/eTransmitting on: 1 11:04 AM EDT
--- OUTSIDE RECORDS SUMMARY | 2025-01-25 10:40 | XMS_ITS | Encounter Summary ---
Author Organization [facility] Address [address] [place] [address] Care Team Providers Care Sewing Machine Tester Name Role Phone Camacho Landin MD Primary Care Provider [phone] Reason for Visit * Reason Comments Follow-up [...] Description 01/25/2025 10:40 AM EDT Office Visit [facility] [address] [place] [address] Gil Watson MD [address] [place] [phone] Right flank pain (Primary Dx) Social History Tobacco Use Types Packs/Day Years [...] Assessment Author Right arm 01/25/2025 10:32 AM EDT Sanam Parsons am, MA * Patient Position Answer Date of Assessment Author Sitting 01/25/2025 10:32 AM EDT Sanam Parsons am, MA documented as of this encounter Plan of Treatment Scheduled Orders Name Type Priority Associated Diagnoses Orde r Schedule Urinalysis Lab Routine Right flank pain Expected: 01/25/2025 (Approximate), Expires: 01/25/2026 documented as of this encounter Visit Diagnoses Diagnosis Right flank pain- Primary Abdominal pain, unspecified site documented in this encounter Care Teams Sewing Machine Tester Relationship Specialty Start Date End Date Camacho Landin MD [address] [facility] [address] [address] PCP - General 02/24/22 documented as of this encounter
--- OUTSIDE RECORDS SUMMARY | 2025-01-25 11:47 | XMS_ITS | Clinical Summary ---
Author Organization [facility] Address [address] [facility] [place] [address] Care Team Providers Care Thread Winder Automatic Name Role Phone Unavailable Primary Care Provider Unavailabl e Social History Tobacco Use Types Packs/Day Years Used Date Smoking Tobacco: Never Assessed Sex and Gender Information Value Date Recorded Sex Assigned at Not on file Legal Sex Male 6:57 PM EDT Gender Identity Not on file Sexual Orientation Not on file Plan of Treatment Not on file
--- OUTSIDE RECORDS SUMMARY | 2025-01-25 11:48 | XMS_ITS | Encounter Summary ---
Author Organization [facility] Address [address] [place] [address] Care Team Providers Care Computer Systems Software Architect Name Role Phone Camacho Landin MD Primary Care Provider [phone] Reason for Visit * Reason Comments Med Refill Encounter Details Date Type Department Care Team (Late st Contact Info) Description 01/11/2023 Refill [facility] [address] [place] [address] Zuleyka Walker MD [address] [facility] [address] [place] [address] Cardiovascular stress test abnormal; Angina pectoris; Dyspnea on exertion Social History Tobacco Use Types Packs/Day Years Used Date Smoking Tobacco: Former Cigarettes Smokeless Tobacco: Never Alcohol Use Standard Drinks/Week Comments Yes 0 (1 standard drink = 0.6 oz pur e alcohol) occasional Sex and Gender Information Value Date Recorded Sex Assigned at Male 01/24/2025 10:03 AM EDT Legal Sex Male 10:56 PM EDT Gender Identity Male 01/24/2025 10:02 AM EDT Sexual Orientation Heterosexual or Straight 12/27 11:16 AM EDT documented as of this encounter Plan of Treatment Not on file documented as of this encounter Visit Diagnoses Diagnosis Cardiovascular stress test abnormal Angina pectoris Other and unspecified angina pectoris Dyspnea on exertion Other dyspnea and respiratory abnormality documented in this encounter Care Teams Computer Systems Software Architect Relationship Specialty Start Date End Date Camacho Landin MD [address] [facility] [address] [address] PCP - General 02/24/22 documented as of this encounter
--- OUTSIDE RECORDS SUMMARY | 2025-01-25 11:48 | XMS_ITS | Patient Health Record ---
Author Organization [facility] [place] Address [address] [place] [address] Care Team Providers Care Jigger Crown Pouncing Machine Operator Name Role Phone Ronak Landin Primary Care Provider [phone] Jordon Bee Unavailable [phone] Allergies No Known Allergies Reason For Referral No Information Medications Medication SIG (Take, Route, Frequency, Duration) Notes Start Date End Date Status Albuterol Sulfate HFA 108 (90 Base) MCG/ACT 2 puffs as needed for SOB Inhalation Q4H; Duration: 30 days 01/21/2023 Active Metoprolol Tartrate 25 MG 1 tablet with food Orally Twice a day Active Zolpidem Tartrate 10 MG 1 tablet at bedtime as needed Orally Once a day F41.9 09/11/2023 Active Diclofenac Sodium 75 MG TAKE 1 TABLET BY MOUTH TWICE A DAY NEEDED FOR 15 DAYS; Duration: 15 days As needed Active Aspirin Low Dose 81 MG 1 tablet Orally O nce a day Active Lipitor 40 MG 1 tablet Orally Once a day Active Linzess 72 MCG TAKE 1 CAPSULE BY MOUTH EVERY DAY; Duration: 30 days As needed Active Amoxicillin-Pot Clavulanate 875-125 MG 1 tablet Orally Twice a day; Duration: 10 days 05/02/2024 Active Lisinopril 10 MG 1 tablet Orally Once a day; Duration: 30 days NEEDS APPT FOR MORE!!!!! Active Immunizations Vaccine Route Administration Date Status Comme nts Flu, Fluad () (75793) 65 yrs+, single-dose syringe IM Intramuscular 01/30/2023 Administered Flu, Fluad (04428) 65 yrs and older, single-dose syringe ([id number]) IM Intramuscular 02/01/2024 Administered SARS-COV-2 (COVID 19 Pfizer 30mcg/0.3mL) Unknown 05/02/2021 Administered Social History Tobacco Use: Social History Observation Description Date Details (start date - stop date) Former Smoker NA - NA Tobacco Use/Smoking Question Answer Notes Patient is a former smoker Additional Findings: Tobacco Non-User Ex-heavy c igarette smoker (20-30/day) Tobacco Control (Standard) Question Answer Notes Tobacco use: Former smoker How long has it been since y ou last smoked? Greater than 10 years Additional Findings: Tobacco non-user Ex-heavy c igarette smoker (20-30/day) AUDIT-C (Standard) Question Answer Notes Did you have a drink contain ing alcohol in the past year? Yes How often did you have six o r more drinks on one occasion in the past year? Never (0 point) How many drinks did you have on a typical day when you were drinking in the past year? 1 or 2 drinks (0 point) How often did you have a dri nk containing alcohol in the past year? 2 to 3 times a week (3 points) Points 3 Interpretation Negative Problems Problem Type SNOMED Code ICD Code Onset Dates Problem Status W/U Status Risk Notes Problem Essential hypertension (52871830) Essential (primary) hypertension (I10) Active confirmed Problem Obesity (423240052) Obesity, unspecified (E66.9) Active confirmed Problem Mixed hyperlipidemia (463874084) Mixed hyperlipidemia (E78.2) Active confirmed Problem Angina pectoris (878725524) Angina pectoris, unspecified (I20.9) Active confirmed Problem Acute frontal sinusitis (92644749) Acute recurrent frontal sinusitis (J01.11) Active confirmed Problem Angina pectoris (515803828) Angina pectoris (I20.9) Active confirmed Problem COPD - Chronic obstructive pulmonary disease (61996581) COPD (chronic obstructive pulmonary disease) (J44.9) Active confirmed Prior treatment : Trelegy > Anoro > Breztri Problem Cervical radiculopathy (14108240) Cervical radiculopathy (M54.12) Active confirmed Problem Obstructive sleep apnea syndrome (56087306) ISIS (obstructive sleep apnea) (G47.33) Active confirmed Problem Insomnia (724635204) Insomnia (G47.00) Active confirmed Problem Irritable bowel syndrome (40043860) IBS (irritable bowel syndrome) (K58.9) Active confirmed Problem Degeneration of cervical intervertebral disc (00430308) Degenerative disc disease, cervical (M50.30) Active confirmed Problem Internal hemorrhoids (53571620) Internal hemorrhoids (K64.8) Active confirmed Problem Allergic rhinitis (20117355) Allergic rhinitis (J30.9) Active confirmed Problem Impacted cerumen (59818056) Cerumen impaction (H61.20) Active confirmed Problem Cervical spondylosis with myelopathy (M47.12) Active confirmed Problem Lumbosacral spondylosis without myelopathy (36044486) DJD (degenerative joint disease), lumbar (M47.816) Active confirmed Problem Umbilical hernia (962197581) Umbilical hernia (K42.9) Active confirmed Problem Erectile dysfunction (disorder) (378137379) Impotence (N52.9) Active confirmed Problem Ex-tobacco user (finding) (172186922) History of tobacco abuse (Z87.891) Active confirmed Quit 2005 Problem Acute bronchiolitis (0456318) Acute bronchiolitis (J21.9) Active confirmed Problem Diverticular disease of colon (196346656) Sigmoid diverticulosis (K57.30) Active confirmed Problem Benign prostatic hypertrophy without outflow obstruction (837684694) BPH (benign prostatic hypertrophy) (N40.0) Active confirmed Problem Enthesopathy of knee (13380168) Bursitis, knee (M70.50) Active confirmed Problem Cidsg-4-moargfytp in phenotype PiMS (finding) (094052334) 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) Active confirmed Problem Body mass index 35.00 to 39.99 (742320140109560) Body mass index [BMI] 36.0-36.9, adult (Z68.36) Active confirmed Problem History of COVID-19 (6246496623387204 05) History of COVID-19 (Z86.16) Active confirmed Vital Signs Heart Rate 61 /min 02/03/2024 Temperature 96.8 degrees Fahrenheit 02/03/2024 Respiratory Rate 18 /min 02/03/2024 Blood pressure diastolic 74 mm Hg 02/03/2024 Oximetry 95 % 02/03/2024 Height 74 in 02/03/2024 Blood pressure systolic 136 mm Hg 02/03/2024 Weight 286.6 lbs 02/03/2024 BMI 36.79 kg/m2 02/03/2024 Encounters Encounter Location Date Provider Diagnosis [facility] [address] [place] [address] 02/03/2024 Jordon Bee COPD (chronic obstructive pulmonary disease) J44.9 ; Alpha 1-antitrypsin PiMS phenotype Z14.8 ; ISIS (obstructive sleep apnea) G47.33 ; History of tobacco abuse Z87.891 and Obesity, unspecified E66.9 [facility] [address] [facility] [place] [address] 02/01/2024 Ronak Landin Encounter for immunization Z23 [facility] [address] [place] [address] 02/02/2024 [facility] [address] [place] [address] 02/03/2024 [facility] [address] [place] [address] 05/02/2024 Ronak Mushtaq [facility] [address] [facility] [place] [address] 09/15/2024 Ronak Mushtaq [facility] [address] [place] [address] 11/14/2024 Jordon [facility] Assessments Encounter Date Diagnosis (ICD Code) Assessment Notes Treatment Notes Treatment Clinical Notes Section Notes 02/03/2024 COPD (chronic obstructive pulmonary disease) (ICD-10 - J44.9) Prior treatment: Trelegy > Anoro > Breztri Prior treatment: Stiolto > Breztri > Trelegy > Anoro He is not using Stiolto. He contacted office as soon as he returned home and informed us he is taking albuterol sulfate HFA. As I thought, this is not a maintenance inhaler and I had explained to him with the presumption he was using albuterol that it has a short life of about 4 to 6 hours. He seems to be getting by with this okay I do not feel that there is a significant harm he is having. He can also use albuterol before activities causing him shortness of breath. He does not feel that he needs any additional treatment at this time as he feels well. F/U 1 year or sooner if needed. 02/03/2024 Alpha 1-antitrypsin PiMS phenotype (ICD-10 - Z14.8) Patient has normal variant alpha1-antitryp sin phenotype MS. This in itself will not cause or typically contribute to emphysema. 02/01/2024 Encounter for immunization (ICD-10 - Z23) 02/03/2024 ISIS (obstructive sleep apnea) (ICD-10 - G47.33) Managed elsewhere. 02/03/2024 History of tobacco abuse (ICD-10 - Z87.891) Quit 2004 This patient does not meet current LDCT criteria (e.g. age, time from cessation, # pack-years). 02/03/2024 Obesity, unspecified (ICD-10 - E66.9) Patient's weight is inducing a restrictive pulmonary physiology. Weight loss indicated: Decrease calories, increase activity. 02/03/2024 Other Plan Of Treatment No Information Insurance Providers Payer Name Payer Address Payer Phone Subscriber Number Group Number Insured Name Patient Relationship to Insured Coverage Start Date Coverage End Date [employer] [address] [place] [address] [id number] Self - patient is the insured Medical (General) History Medical History History ICD Code Alpha 1-antitrypsin PiMS phenotype Z14.8 Mixed hyperlipidemia E78.2 Angina pectoris I20.9 Essential (primary) hypertension I10 Bursitis, knee M70.50 Acute recurrent frontal sinusitis J01.11 Internal hemorrhoids K64.8 Sigmoid diverticulosis K57.30 IBS (irritable bowel syndrome) K58.9 DJD (degenerative joint disease), lumbar M47.816 Cervical spondylosis with myelopathy M47 .12 Cervical radiculopathy M54.12 Degenerative disc disease, cervical M50. 30 Umbilical hernia K42.9 BPH (benign prostatic hypertrophy) N40.0 Impotence N52.9 Allergic rhinitis J30.9 Insomnia G47.00 COPD (chronic obstructive pulmonary dise ase) J44.9 ISIS (obstructive sleep apnea) G47.33 CAD (coronary artery disease) I25.10 History of tobacco abuse Z87.891 History of COVID-19 Z86.16 Cervical disc disease M50.90 Surgical History Surgery Date(Month/Year) Cardiac Catheterization 07/24/2021
--- OUTSIDE RECORDS SUMMARY | 2025-01-25 11:48 | XMS_ITS | Clinical Summary ---
Author Organization [facility] Address [address] [place] [address] Care Team Providers Care Wind Turbine Installer Name Role Phone Camacho Landin MD Primary Care Provider [phone] Allergies No known active allergies Medications aspirin 81 mg chewable tablet Chew 81 mg 1 (one) time. Active linaCLOtide (Linzess) 72 mcg capsule Linzess 72 mcg capsule TAKE 1 CAPSULE BY MOUTH EVERY DAY Active traZODone (Desyrel) 50 mg tablet at bedtime. Activ e Spiriva Respimat 2.5 mcg/actuation inhaler INHALE 2 PUFFS INTO THE LUNGS EVERY DAY FOR 30 DAYS 4 Active metoprolol tartrate (Lopressor) 25 mg tabletIndications:C ardiovascular stress test abnormal,Angina pectoris,Dyspnea on exertion TAKE 1/2 TABLET BY MOUTH TWICE A DAY 90 tablet 3 4 Active isosorbide mononitrate ER (Imdur) 30 mg 24 hr tabletIndications:C hest pain, unspecified type Take 1 tablet (30 mg) by mouth in the morning. Do not crush or chew. 90 tablet 3 4 03/29/20 25 Active benzonatate (Tessalon) 100 mg capsule Take 1 capsule by mouth every 8 (eight) hours if needed for cough. 4 Active zolpidem (Ambien) 10 mg tablet Take 10 mg by mouth if needed at bedtime. 4 Active lisinopril 10 mg tabletIndications:E ssential hypertension Take 1 tablet (10 mg) by mouth in the morning. 90 tablet 3 5 06/09/20 26 Active atorvastatin (Lipitor) 40 mg tabletIndications:M ixed hyperlipidemia TAKE 1 TABLET BY MOUTH AT BEDTIME 90 tablet 3 Active magnesium gluconate 12.5 mg magne- sium (250 mg) tablet Take 1 tablet by mouth in the morning. Active sertraline (Zoloft) 50 mg tablet Take 50 mg by mouth in the morning. Active Active Problems Problem Noted Date Diagnosed Date Anxiety 01/23/2025 Depression 01/23/2025 Insomnia 01/23/2025 Pain in right foot 01/23/2025 Encounter for screening, unspecified 03/29/2024 Seborrheic dermatitis 03/29/2024 Actinic keratosis 09/11/2023 09/11/2023 Constipation 09/11/2023 09/11/2023 Cystoid macular edema follow ing cataract surgery, unspecified eye 09/11/2023 09/11/2023 Encounter for fitting and adjustment of hearing aid 09/11/2023 09/11/2023 Essential (primary) hypertension 09/11/2023 09/11/2023 Hearing loss 09/11/2023 09/11/2023 History of severe acute resp iratory syndrome coronavirus 2 (SARS-CoV-2) disease 09/11/2023 09/11/2023 Mild chronic obstructive pulmonary disease 09/1009/11/2023 Myopia, bilateral 09/11/2023 09/11/2023 Morbid obesity 09/11/2023 09/11/2023 Osteoarthritis 09/11/2023 09/11/2023 Sensorineural hearing loss, bilateral 09/11/2023 09/11/2023 Sleep apnea 09/11/2023 09/11/2023 Angina pectoris 07/12/2021 Assessment & Plan (08/29/2022 2:30 PM EDT): currently resolved Cardiovascular stress test abnormal 07/12/2021 Dyspnea 07/12/2021 Assessment & Plan (08/29/2022 2:29 PM EDT): Stable and no worsening symptoms Mixed hyperlipidemia 07/12/2021 Assessment & Plan (08/29/2022 2:30 PM EDT): States he has annual labs at the [place] Last LDL 57 and Chol 123- well controlled Continue statin Encounters Date Type Department Care Team Description 01/25/2025 10:40 AM EDT Office Visit [facility] at [facility] [address] [place] [address] Gil Watson MD Right flank pain (Primary Dx) from Last 3 Months Family History Medical History Relation Name Comments Cancer Father Coronary artery disease Father Cancer Mother Relation Name Status Comments Brother Father Mother Sister Social History Tobacco Use Types Packs/Day Years Used Date Smoking Tobacco: Former Cigarettes Smokeless Tobacco: Never Tobacco Cessation:Counseling Given: Not Answered Alcohol Use Standard Drinks/Week Comments Yes 0 [...] Heterosexual or Straight 12/27 11:16 AM EDT Last Filed Vital Signs Vital Sign Reading [...] Mass Index 35.95 01/25/2025 10:32 AM EDT Plan of Treatment Health Maintenance Due Date Last Done Comments CT Colonography 1955 Colonoscopy 1955 Colorectal Cancer Screening 1955 FIT-DNA 1955 FIT 1955 FOBT 1955 Medicare Annual Wellness (AWV) 1955 Sigmoidoscopy 1955 Depression Screening 1967 Fall Risk Screening 08/01/2020 COVID-19 Vaccine (2024- season) 2024 05/02/2021 Adult Tetanus 01/18/2029 01/18/2019 Zoster Vaccines Completed 11/14/2021, 03/04/2021 Pneumococcal Vaccine: 50+ Years Completed 11/11/2022, 01/02/2021 Influenza Vaccine Completed 01/23/2025, , 12/26/2022, Additional history exists HIB Vaccines Aged Out No longer eligi ble based on patient's age to complete this topic HPV Vaccines Aged Out No longer eligi ble based on patient's age to complete this topic IPV Vaccines Aged Out No longer eligi ble based on patient's age to complete this topic Meningococcal B Vaccine Aged Out No l onger eligible based on patient's age to complete this topic Meningococcal Vaccine Aged Out No estrada farhan eligible based on patient's age to complete this topic Rotavirus Vaccines Aged Out No longer eligible based on patient's age to complete this topic Insurance [employer] Care Teams Wind Turbine Installer Relationship Specialty Start Date End Date Camacho Landin MD [address] [facility] [address] [address] PCP - General 02/24/22
[2025-01-25 12:00] LABS: Glucose Urine UA NEGATIVE (NEGATIVE)
== END 2025-01-25 11:45 | disposition home or self-care (01) ==
LOC: LAB 11:46
PROVIDERS: PCP Family Medicine; Visit Provider Internal Medicine Cardiovascular Disease
DX: R10.31 Right lower quadrant pain (principal)
CPT/HCPCS: 81003

== ENCOUNTER 2025-01-30 09:15 | Outpatient (OUT) | payer MEDICARE, SELFPAY ==
--- OUTSIDE RECORDS SUMMARY | 2025-01-25 10:40 | XMS_ITS | Encounter Summary ---
Author Organization [facility] Address [address] [place] [address] Care Team Providers Care Necktie Stitcher Name Role Phone Camacho Landin MD Primary Care Provider [phone] Reason for Visit * Reason Comments Follow-up Patient is here toda y for a routine 6 month appointment. Patient complains of SOB, LUIS, recent fall, chest pain with exertion, fatigue, dizziness/lightheaded with position changes, right flank pain which radiates to right lower abdomen, racing heart/palpitations. Hyperlipidemia Hypertension Chest Pain Encounter Details Date Type Department Care Team (Late st Contact Info) Description 01/25/2025 10:40 AM EDT Office Visit [facility] [address] [place] [address] Gil Watson MD [address] [place] [id number] Right flank pain (Primary Dx); Essential hypertension; Coronary artery disease involving wrangell coronary artery of wrangell heart without angina pectoris Social History Tobacco Use Types Packs/Day Years Used Date Smoking Tobacco: Former Cigarettes Smokeless Tobacco: Never Alcohol Use Standard Drinks/Week Comments Yes 0 (1 standard drink = 0.6 oz pur e alcohol) occasional [place] Safety & Environment Answer Date Rec orded Fear of Current or Ex-Partner Not on file Emotionally Abused Not on file 06/18/2023 Physically Abused Not on file 06/18/2023 Sexually Abused Not on file 06/18/2023 Physically or Sexually Abused Not on file Sex and Gender Information Value Date Recorded Sex Assigned at Male 01/24/2025 10:03 AM EDT Legal Sex Male 10:56 PM EDT Gender Identity Male 01/24/2025 10:02 AM EDT Sexual Orientation Heterosexual or Straight 12/27 11:16 AM EDT documented as of this encounter Last Filed Vital Signs Vital Sign Reading Time Taken Comments Blood Pressure 133/55 01/25/2025 10:32 AM EDT Pulse 55 01/25/2025 10:32 AM EDT Temperature - - Respiratory Rate - - Oxygen Saturation 97% 01/25/2025 10:32 AM EDT Inhaled Oxygen Concentration - - Weight 127 kg (280 lb) 01/25/2025 10:32 AM EDT Height 188 cm (6' 2 ) 01/25/2025 10:32 AM EDT Body Mass Index 35.95 01/25/2025 10:32 AM EDT documented in this encounter Functional Status * BP Answer Date of Assessment Author 133/55 01/25/2025 10:32 AM EDT Sanam Parsons am, [place] * Pulse Answer Date of Assessment Author 55 01/25/2025 10:32 AM EDT Sanam Parsons am, [place] * Patient Position Answer Date of Assessment Author Sitting 01/25/2025 10:32 AM EDT Sanam Parsons am, [place] * BP Answer Date of Assessment Author 133/55 01/25/2025 10:32 AM EDT Sanam Parsons am, [place] * Pulse Answer Date of Assessment Author 55 01/25/2025 10:32 AM EDT Sanam Parsons am, [place] * SpO2 Answer Date of Assessment Author 97 01/25/2025 10:32 AM EDT Sanam Parsons am, [place] * BP Location Answer Date of Assessment Author Right arm 01/25/2025 10:32 AM [place]ABET[place] Sanam Parsons am, [place] * Patient Position Answer Date of Assessment Author Sitting 01/25/2025 10:32 AM [place]ETHT Sanam Parsons am, [place] documented as of this encounter Progress Notes * Gil Watson MD - 01/25/2025 10:40 AM EDT Subjective Patient ID: Joo Garner is a 69 y.o. male who presents for Follow-up (Patient is here today for myriam 6 month appointment. Patient complains of SOB, LUIS, recent fall, chest pain with exertion, fatigue, dizziness/lightheaded with position changes, right flank pain which radiates to right lowerabdomen, racing heart/palpitations.), Hyperlipidemia, Hypertension, and Chest Pain. OK pain in R groin into back. No chest pain, a little SOB with activity (run down to basement quick and back up) Able to ride a bike [place] to [place] and back without SOB. Hyperlipidemia Associated symptoms include chest pain and shortness of breath. Hypertension Associated symptoms include chest pain and shortness of breath. Chest Pain Associated symptoms include shortness of breath. His past medical history is significant for hyperlipidemia. Review of Systems Respiratory: Positive for shortness of breath. Negative for chest tightness. Cardiovascular: Positive for chest pain. Gastrointestinal: Negative. R flank non tender. Able to rotate hip without pain. No mass palpated Objective Visit Vitals BP 133/55 (BP Location: Right arm, Patient Position: Sitting) Pulse 55 Physical Exam Constitutional: Appearance: Normal appearance. He is obese. Cardiovascular: Rate and Rhythm: Normal rate and regular rhythm. No extrasystoles are present. Chest Wall: PMI is displaced. No thrill. Pulses: Carotid pulses are 2+ on the right side and 2+ on the left side. Radial pulses are 2+ on the right side and 2+ on the left side. Heart sounds: Heart sounds not distant. No murmur heard. No friction rub. No gallop. Pulmonary: Effort: Pulmonary effort is normal. Breath sounds: Normal breath sounds. Abdominal: Palpations: Abdomen is soft. Comments: Ventral and umbilical hernia See exam in ROS Musculoskeletal: Right lower leg: No edema. Left lower leg: No edema. Skin: General: Skin is warm and dry. Neurological: General: No focal deficit present. Mental Status: He is alert and oriented to person, place, and time. Psychiatric: Mood and Affect: Mood normal. Behavior: Behavior normal. Thought Content: Thought content normal. Assessment/Plan Mr. Garner has non obstructive CAD and is asymptomatic. BP controlled and last LDL 60. I have recommended he follow up with Dr. Landin for flank/groin pain and have ordered a urinalysis as an initial evaluation Diagnosis Plan 1. Right flank pain Urinalysis 2. Essential hypertension 3. Coronary artery disease involving wrangell coronary artery of wrangell heart without angina pectoris Orders Placed This Encounter Procedures Urinalysis Standing Status: Future Expected Date: 01/25/2025 Expiration Date: 01/25/2026 Release to Patient: Immediately No results found for this or any previous visit (from the past 36 hours). No follow-ups on file. documented in this encounter Plan of Treatment Scheduled Orders Name Type Priority Associated Diagnoses Orde r Schedule Urinalysis Lab Routine Right flank pain Expected: 01/25/2025 (Approximate), Expires: 01/25/2026 documented as of this encounter Visit Diagnoses Diagnosis Right flank pain- Primary Abdominal pain, unspecified site Essential hypertension Unspecified essential hypertension Coronary artery disease involving wrangell coronary artery of wrangell heart without angina pectoris documented in this encounter Care Teams Necktie Stitcher Relationship Specialty Start Date End Date Camacho Landin MD [address] [facility] [place] [address] PCP - General 02/24/22 documented as of this encounter
--- OUTSIDE RECORDS SUMMARY | 2025-01-30 09:20 | XMS_ITS | Clinical Summary ---
Author Organization [facility] Address [address] [place] [address] Care Team Providers Care Senior Mechanical Engineer Name Role Phone Camacho Landin MD Primary Care Provider [phone] Allergies No known active allergies Medications aspirin [...] Description 01/25/2025 10:40 AM EDT Office Visit [facility] at [facility] [address] [place] [address] Gil Watson MD Right flank pain (Primary Dx); Essential hypertension; Coronary artery disease involving [place] coronary artery of [place] heart without angina pectoris from Last 3 Months Family History Medical [...] 1967 Fall Risk Screening 08/01/2020 COVID-19 Vaccine ( season) 2024 05/02/2021 Adult Tetanus 01/18/2029 01/18/2019 [...] topic Insurance [employer] Care Teams Senior Mechanical Engineer Relationship Specialty Start Date End Date Camacho Landin MD [address] [facility] [address] [address] PCP - General 02/24/22
--- OUTSIDE RECORDS SUMMARY | 2025-01-30 09:20 | XMS_ITS | Clinical Summary ---
Author Organization [facility] Address [address] [place] [address] Care Team Providers Care Sales Administration Specialist Name Role Phone Unavailable Primary Care Provider [...]
--- OUTSIDE RECORDS SUMMARY | 2025-01-30 09:20 | XMS_ITS | Encounter Summary ---
Author Organization [facility] Address [address] [place] [address] Care Team Providers Care Burglar Alarm Installer Name Role Phone Camacho Landin MD Primary Care Provider [phone] Reason for Visit * Reason Comments Med Refill Encounter Details Date Type Department Care Team (Late st Contact Info) Description 01/11/[address] [facility] Heart at [facility] [address] [place] [address] Zuleyka Walker MD [address] [facility] [address] [place] [address] Cardiovascular stress test abnormal; Angina pectoris; Dyspnea [...] abnormality documented in this encounter Care Teams Burglar Alarm Installer Relationship Specialty Start Date End Date Camacho Landin MD [address] [facility] [address] [address] PCP - General 02/24/22 documented as of this encounter
--- OUTSIDE RECORDS SUMMARY | 2025-01-30 09:31 | XMS_ITS | CCD ---
Author Organization [facility] CliniSyva Care Team Providers Care Compressor Stations Superintendent Name Role Phone ZULEYKA WALKER Admitting Unavailable SHITAL WALKERAMAYady Attending Unavailable DURGA LANDIN Primary Care Unavailable DURGA LANDIN Referring Unavailable HOY, DR CALIXTO Primary Care [...] Primary Care Unavailable ADAN, RELL Consulting Unavailable SHITAL WALKERAMAYady Attending Unavailable GRAHAMHOZULEYKA GUNTER Attending Unavailable ZULEYKA WALKER Attending Unavailable KAREN ORELLANA Attending Unavailable Durga Landin MD Primary Care Provider [phone] Gil Mo MD Attending Provider Gil Mo MD Other Provider [phone] Gil Mo Admitting Gil Bear Attending UnavailDurga Parish Primary Care Unavailable Problems Active Problems Problem Classification Problem Date Documented Da te Episodic/Chronic Chronic obstructive pulmonary disease and bronchiectasis (1 source) Chronic obstructive lung disease; Translations: [Chronic obstructive pulmonary disease, unspecified] 11-14-2024 Chronic Coronary atherosclerosis and other heart disease (3 sources) Unstable angina; Translations: [Atherosclerotic heart disease of [place] coronary artery without angina pectoris] Onset: 07-24-2021 Chronic Disorders of lipid metabolism (3 sources) Mixed hyperlipidemia; Translations: [MIXED HYPERLIPIDEMIA] Onset: 07-24-2021 Chronic Essential hypertension (2 sources) Essential (primary) hypertension; Translations: [Essential (primary) hypertension] Onset: 08-05-2024 Chronic Immunizations and screening for infectious disease (1 source) Encounter for immunization; Translations: [ENCOUNTER FOR IMMUNIZATION] Onset: 10-14-2021 Episodic Other circulatory disease (1 source) Other specified symptoms and signs involving the circulatory and respiratory systems; Translations: [OTH SPEC SX SIGNS INVLV CIRC RS] Onset: 10-10-2021 Episodic Other lower respiratory disease (7 sources) Shortness of breath; Translations: [SHORTNESS OF [...] Classification Problem Date Documented Da te Episodic/Chronic Nonspecific chest pain (6 sources) Chest pain, unspecified; Translations: [CHEST PAIN UNSPECIFIED] Onset: 07-11-2021 Episodic Unclassified (1 source) CONTACT W/AND (SUSP) EXPOS COVID-19; Translations: [CONTACT W/AND (SUSP) EXPOS COVID-19] Onset: 10-09-2021 Results Test Name Value Interpretation Reference Range Facility XR chest 2V*on 11-29-2024 XR chest 2V* [facility] [place] [address] [place] [address] XRay Report Signed Patient: Scott Garner MR#: [id number] 8 : 1955 Acct:[id number] Age/Sex: 69 / M ADM Date: 11/29/24 Loc: RT Room: Type: [facility] Attending Dr: Gil Mo MD Copies to: Gil Mo MD Ordering Provider: Gil Mo MD Date of Service: 11/29/24 XR/XR chest 2V*: R06.02 - Shortness of breath PA AND LATERAL CHEST: CLINICAL HISTORY: Chest pain, short of breath COMPARISON: None FINDINGS: Unremarkable cardiomediastinal. Lungs are clear. No effusion or pneumothorax. XR/XR chest 2V* IMPRESSION: NO ACUTE CARDIOPULMONARY ABNORMALITY. Impression dictated by: Parmjit Galvan M.D. 11/29/2024 7:40 PM Dictation Location: [place] [address] Transcribed By: [facility] 11/29/241939 Dictated By: Parmjit Galvan MD 11/29/241938 Signed By: 11/29/241939 Normal [facility] Office Visiton 08-05-2024 Follow-up visit [id number] Scott Garner 1955 M Date Provider Department Center 08/05/2024 [id number] ORELLANA Family History Problem Relation Age of Onset Cancer Mother Coronary artery disease Father Cancer Father Family Status - Relation Status Age at Mother Father Sister Brother Level of Service:54200 NM OFFICE/OUTPATIENT ESTABLISHED LOW MDM [address] [facility] Office Visiton 03-29-2024 Follow-up visit [id number] Scott Garner 1955 M Date Provider Department Center 03/29/2024 [id number] WALKER Family History Problem Relation Age of Onset Coronary artery disease Father Family Status - Relation Status Age at Father Level of Service:98447 NM OFFICE/OUTPATIENT ESTABLISHED LOW MDM [address] [facility] Office Visiton 10-23-2023 Follow-up visit [id number] Scott Garner 1955 M Date Provider Department Center 10/23/2023 SteffanieZULEYKA SHER Family History Problem Relation Age of Onset Coronary artery disease Father Family Status - Relation Status Age at Father Level of Service:08571 NM OFFICE/OUTPATIENT ESTABLISHED MOD MDM [address] [facility] Follow-Upon 09-11-2023 Follow-Up [id number] Scott Garner 1955 M Date Provider Department Center 09/11/2023 ZULEYKA GOETZ Family History Problem Relation Age of Onset Coronary artery disease Father Family Status - Relation Status Age at Father Level of Service:75679 NM OFFICE/OUTPATIENT ESTABLISHED MOD MDM [address] [facility] SYMPTOMATIC COVID-19 ANTIGEN on 10-09-2021 EUA Statement SEE BELOW Normal [facility] Comment on above: Result Comment: This test [...] sooner. Performed By: #### C VDAGS #### [facility] [address] [place] [address] Dr. Genia Madrigal SARS-CoV-2 (COVID-19) RNA ABA+probe Ql (Unsp spec) Positive Critically abnormal NEGATIVE [facility] Comment on above: Performed By: #### C VDAGS #### [facility] [address] [place] [address] Dr. Genia Madrigal HEMOGLOBINon 09-16-2021 Hemoglobin (Bld) [Mass/Vol] 13.0 g/dL Critically low 14.0-18.0 [facility] Comment on above: Performed By: #### H GB #### [facility] [address] [place], [place] [address] Dr. Genia Madrigal Cardiovascular Lab Reporton 07-25-2021 Cardiovascular Lab Report [facility] Patient Name: Scott Garner MR #: [id number] [facility] Physician: Zuleyka Walker MD Department of Service Date: 07/24/2021 Medicine Birthdate: 1955 Division of Room #: CC Cardiology Adult Cardiovascular Services [facility] [address] [facility]. [place] [address] Cardiovascular Laboratory Report PROCEDURES PERFORMED: 1. Coronary angiography. 2. Right heart catheterization. FINAL IMPRESSIONS: 1. Nonobstructive CAD. 2. Normal right-sided pressures. RECOMMENDATIONS: 1. Optimization of medical management for nonobstructive CAD: Aspirin, high-intensity statin, beta odalys. 2. Followup with Rell Arellano in clinic as scheduled. PROCEDURE IN DETAIL: [...] test, chest pain. Electronically Signed by: Zuleyka Walker MD 07/28/2021 07:19 P Zuleyka Walker MD Date Dict: 07/24/2021/07:35 P/Zuleyka Walker MD Date Trans: 07/25/2021 04:47 A/neftaly [id number] cc: Durga Landin M.D. [address] [facility] [phone] [facility] BILIRUBIN CONJUGATED (DIRECT )on 07-22-2021 BILI, CONJUGATED 0.2 mg/dL Normal 0.0-0.3 [facility] Comment on above: Performed By: #### D PRESTON #### [facility] [address] [place] [address] Dr. Genia Madrigal Covid-19 PCR (CVDTBH)on 06-26 SARS-CoV-2 (COVID-19) RNA ABA+probe Ql (Unsp spec) Not detected Normal NOT DETECTED [facility] Comment on above: Result Comment: When diagnostic testing is negative, the possibility of a false negative should be considered in the context of a patient's recent exposures and the presence of clinical signs and symptoms consistent with SARS-CoV-2. This test is not yet approved or cleared by the [place] Food and Drug Administration (FDA). This test was developed by [employer], [place], [place]. The performance characteristics of this test were validated by [facility]. The results are not intended to be used as the sole means for clinical diagnosis or patient management decisions. [facility] is authorized under Clinical Laboratory Improvement [...] for this test is supported by the Director Of Child Welfare Services of Health and Human Service's declaration that [...] longer be used). Performed By: #### C VDTB #### [facility] [address] [place] [address] Dr. Genia Madrigal HEMOGRAM AND PLATELon 2021 Hematocrit (Bld) [Volume fraction] 37.9 % Critically low 42.0-54.0 [facility] Comment on above: Performed By: #### H H #### [facility] [address] [place] [address] [address] Genia Madrigal Hemoglobin (Bld) [Mass/Vol] 13.3 g/dL Critically low 14.0-18.0 [facility] Comment on above: Performed By: #### H H #### [facility] [address] [place] [address] Dr. Genia Madrigal MCH (RBC) [Entitic mass] 33.0 pg Normal 25.9-34.0 [facility] Comment on above: Performed By: #### H H #### [facility] [address] [place] [address] [address] Genia Madrigal MCHC (RBC) [Mass/Vol] 35.1 g/dL Normal 29.9-35.2 [facility] Comment on above: Performed By: #### H H #### [facility] [address] [place] [address] [address] Genia Madrigal MCV (RBC) [Entitic vol] 94.0 fL Normal 80.0-94.0 [facility] Comment on above: Performed By: #### H H #### [facility] [address] [place] [address] [address] Genia Madrigal PLT 169 103/ul Normal 150-450 [facility] Comment on above: Performed By: #### H H #### [facility] [address] [place] [address] Dr. Genia Madrigal RBC 4.03 106/ul Critically low 4.70-6.10 [facility] Comment on above: Performed By: #### H H #### [facility] [address] [place] [address] Dr. Genia Madrigal WBC 6.0 103/ul Normal 4.0-11.0 [facility] Comment on above: Performed By: #### H H #### [facility] [address] [place] [address] Dr. Genia Madrigal LIPID PROFILEon 07-22-2021 CHOL-HDL RATIO NORM SEE BELOW Normal [facility] Comment on above: Result Comment: 3.3 - 4.4 LOW RISK 4.4 - 7.1 AVERAGE RISK 7.1 - 11.0 MODERATE RISK >11.0 HIGH RISK Performed By: #### L IPID, CMP #### [facility] [address] [place] [address] Dr. Genia Madrigal Cholesterol [Mass/Vol] 117 mg/dL Normal <=200 [facility] Comment on above: Performed By: #### L IPID, CMP #### [facility] [address] [place] [address] Dr. Genia Madrigal Cholesterol in HDL [Mass/Vol] 49 mg/dL Normal 40-60 [facility] Comment on above: Performed By: #### L IPID, CMP #### [facility] [address] [place] [address] [address] Genia Madrigal Cholesterol in LDL [Mass/Vol] 52.8 mg/dL Normal [facility] Comment on above: Performed By: #### L IPID, CMP #### [facility] [address] [place] [address] [address] Genia Madrigal Cholesterol.total/C holesterol in HDL [Mass ratio] 2.4 {ratio} Normal [facility] Comment on above: Performed By: #### L IPID, CMP #### [facility] [address] [place] [address] [address] Genia Madrigal HDL NORMAL > or = 60 mg/dl - LO W CARDIOVASCULAR RISK <40 mg/dl - HIGH CARDIOVASCULAR RISK Normal [facility] Comment on above: Performed By: #### L IPID, CMP #### [facility] [address] [place] [address] [address] Genia Madrigal LDL CALC NORMAL SEE BELOW Normal [facility] Comment on above: Result Comment: <100 mg/dl OPTIMAL 100 - 129 mg/dl NEAR OR ABOVE OPTIMAL 130 - 159 mg/dl BORDERLINE HIGH 160 - 189 mg/dl HIGH >190 mg/dl VERY HIGH Performed By: #### L IPID, CMP #### [facility] [address] [place] [address] [address] Genia Madrigal Triglyceride [Mass/Vol] 76 mg/dL Normal <=150 [facility] Comment on above: Performed By: #### L IPID, CMP #### [facility] [address] [place] [address] [address] Genia Madrigal VLDL CALC 15.2 mg/dL Normal [facility] Comment on above: Performed By: #### L IPID, CMP #### [facility] [address] [place] [address] [address] Genia Madrigal PROF 14(COMP METB)on 022 Albumin [Mass/Vol] 3.9 g/dL Normal 3.4-5.[address] [facility] Comment on above: Performed By: #### L IPID, CMP #### [facility] [address] [place] [address] [address] Genia Madrigal Albumin/Globulin [Mass ratio] 1.1 {ratio} Normal [facility] Comment on above: Performed By: #### L IPID, CMP #### [facility] [address] [place] [address] [address] Genia Madrigal ALP [Catalytic activity/Vol] 63 U/L Normal 46-116 [facility] Comment on above: Performed By: #### L IPID, CMP #### [facility] [address] [place] [address] [address] Genia Madrigal ALT [Catalytic activity/Vol] 27 U/L Normal 16-63 [facility] Comment on above: Performed By: #### L IPID, CMP #### [facility] [address] [place] [address] [address] Genia Madrigal Anion gap [Moles/Vol] 12.2 mmol/L Normal [facility] Comment on above: Performed By: #### L IPID, CMP #### [facility] [address] [place] [address] [address] Genia Madrigal AST [Catalytic activity/Vol] 21 U/L Normal 15-37 [facility] Comment on above: Performed By: #### L IPID, CMP #### [facility] [address] [place] [address] [address] Genia Madrigal Bilirubin [Mass/Vol] 0.8 mg/dL Normal 0.2-1.3 [facility] Comment on above: Performed By: #### L IPID, CMP #### [facility] [address] [place] [address] [address] Genia Madrigal Calcium [Mass/Vol] 8.1 mg/dL Critically low 8.5-10.1 [facility] Comment on above: Performed By: #### L IPID, CMP #### [facility] [address] [place] [address] [address] Genia Madrigal Chloride [Moles/Vol] 107 mmol/L Normal 98-107 [facility] Comment on above: Performed By: #### L IPID, CMP #### [facility] [address] [place] [address] [address] Genia Madrigal CO2 [Moles/Vol] 26.8 mmol/L Normal 22.0-30.0 [facility] Comment on above: Performed By: #### L IPID, CMP #### [facility] [address] [place] [address] [address] Genia Madrigal Creatinine [Mass/Vol] 1.19 mg/dL Normal 0.66-1.25 [facility] Comment on above: Performed By: #### L IPID, CMP #### [facility] [address] [place] [address] Dr. Genia Madrigal EGFR-AF DUTCH >60 Normal >=60 [facility] Comment on above: Performed By: #### L IPID, CMP #### [facility] [address] [place] [address] Dr. Genia Madrigal EGFR-NON AF DUTCH >60 Normal >=60 [facility] Comment on above: Performed By: #### L IPID, CMP #### [facility] [address] [place] [address] [address] Genia Madrigal Globulin (S) [Mass/Vol] 3.5 g/dL Normal [facility] Comment on above: Performed By: #### L IPID, CMP #### [facility] [address] [place] [address] [address] Genia Madrigal Glucose [Mass/Vol] 98 mg/dL Normal 74-106 [facility] Comment on above: Performed By: #### L IPID, CMP #### [facility] [address] [place] [address] [address] Genia Madrigal Potassium [Moles/Vol] 4.0 mmol/L Normal 3.4-5.0 [facility] Comment on above: Performed By: #### L IPID, CMP #### [facility] [address] [place] [address] [address] Genia Madrigal Protein [Mass/Vol] 7.4 g/dL Normal 6.1-8.[address] [facility] Comment on above: Performed By: #### L IPID, CMP #### [facility] [address] [place] [address] [address] Genia Madrigal Sodium [Moles/Vol] 142 mmol/L Normal 137-[address] [facility] Comment on above: Performed By: #### L IPID, CMP #### [facility] [address] [place] [address] [address] Genia Madrigal Urea nitrogen [Mass/Vol] 27.0 mg/dL Critically high 7.0-18.0 [facility] Comment on above: Performed By: #### L IPID, CMP #### [facility] [address] [place] [address] [address] Genia Madrigal Urea nitrogen/Creatinine [Mass ratio] 22.7 mg/mg Normal [facility] Comment on above: Performed By: #### L IPID, CMP #### [facility] [address] [place] [address] Dr. Genia Madrigal ECHOCARDIO M/2D COMPLETEon 0 07-19-2021 ECHOCARDIO M/2D COMPLETE Patient: SCOTT GARNER Exam Date: 07/19/2021 : 1955 Gender:M Ordering : RELL ARELLANO Admission #: [id number] Family : Order #: [id number] CLICK HERE TO VIEW EXAM ECHOCARDIOGRAM REPORT [...] Area(A4C): 20.80 cm2 Left Atrium Systolic Volume(A2C): 21733 mm3 Left Atrium Systolic Volume(A4C): 71248 mm3 Mitral Valve MV E to A [...] Gordo Bahena M.D. on 07/22/2021 at 09:02 [facility] NM STRESS/REST [facility] 07-11 NM STRESS/REST MULTI Patient: SCOTT GARNER Exam Date: 07/11/2021 : 1955 Gender:M Ordering : DR DURGA LANDIN . Admission #: [id number] Family : Order #: [id number] CLICK HERE TO VIEW EXAM RADIOLOGY REPORT [...] Win Flynn MD on 07/12/2021 at 09:16 [facility] Encounters Encounter Date Encounter Type Care Provider Facility Start: 11-29-2024 End: 11-29-2024 ambulatory Gil oM Facility:[facility] Start: 11-29-2024 Non-patient / Non-visit Maxx Mo MD -[facility] Work Phone: Start: 08-05-2024 End: 08-05-[address] [facility] Start: 03-29-2024 End: 03-29-2024 ambulatory SHITALBUFFALOYady [facility] Start: 10-23-2023 End: 10-23-2023 [facility] Start: 09-11-[address] [facility] Start: 10-11-2021 End: 10-11-[address] DURGA LANDIN Facility:[facility] Start: 10-09-2021 End: 10-09-[address] DURGA LANDIN Facility:[facility] Start: 09-16-2021 End: 09-17-[address] DURGA LANDIN Facility:[facility] Start: 07-24-2021 Encounter for other preprocedural examination RELL ARELLANO [facility] Start: 07-24-2021 End: 07-25-2021 ambulatory ZULEYKA WALKER Facility:[facility] Start: 07-22-2021 End: 07-23-2021 ambulatory RELL ARELLANO Facility:[facility] Start: 07-22-2021 End: 07-23-2021 Encounter for other preprocedural examination RELL ARELLANO Facility:[facility] Start: 07-19-2021 End: 07-20-2021 ambulatory RELL ARELLANO Facility:[facility] Start: 07-12-[address] DURGA LANDIN Facility :[facility] Start: 07-11-2021 End: 07-12-[address] DURGA LANDIN Facility:[facility] Start: 03-21-[address] DURGA LANDIN Facility :[facility] Payers Date Payer Category Payer Self-pay 2024 Unknown [id number] 1959 Self-pay [id number] 1959 Unknown [id number] 1955 Unknown [id number] 2.16.8 [id number] 1955 Unknown [id number] 2.16.84 [id number] 1955 Unknown [id number] 2.16.84 [id number] 1955 Unknown [id number] 2.16.84 [id number] 1955 Unknown [id number] 2.16.84 [id number] 1955 Unknown [id number] 2.16.84 [id number] 1955 Unknown [id number] 2.16.84 [id number] 1955 Unknown [id number] 2.16.84 [id number] 1955 Unknown [id number] 2.16.84 [id number] Unknown [id number] 2.16.8 [id number] Social History Date Type Detail Facility Tobacco smoking stat [facility] Unknown if ever smoked [facility] Work Phone: Sex Male (finding) [facility] Start: 1955 Sex Assigned At Male F [facility] Progress note 08-05-2024 Note Date & Type Note Facility 08-05-2024 Note SUBJECTIVE Reason for Visit: Scott Garner is a 69 y.o. year old male patient being seen for follow-up visit. HPI: Scott Garner is a 69 y.o. year old male with significant medical history of hypertension, hyperlipidemia, and mild to moderate nonobstructive CAD. He presents to cardiology clinic for routine follow-up. 08/05/2024 office visit: Patient was seen and evaluated in the office today, accompanied by his . He reports feeling well overall and recently returned from annual trip to [place]. He denies chest pain, shortness of breath, palpitations, lightheadedness, or dizziness. He remains motivated to lose weight, which he has identified as a personal goal for the coming months including increasing exercise. He has no questions or concerns at this time. 03/29/2024 office visit (Dr. Walker): During his previous appointment, patient complained of chest pain during his trip to [place]. Stress and echo were obtained. Stress test demonstrated a large transmural inferior infarct, which has been seen on patient's previous stress tests. No reversible ischemia. Echo without acute abnormality. EF normal. Today, patient States that he is doing well overall. He does complain of rare chest tightness with exertion. He states that it is mild, and it is much improved from previous, when he had his heart catheterization. He denies any dyspnea or dyspnea on exertion. He denies any lower extreme edema, orthopnea, or paroxysmal nocturnal dyspnea. Overall, he is pleased with how he is doing. He has been active and has not been having any major issues. -Stress without evidence of reversible ischemia. Patient was noted to have inferior defect that is fixed, similar to what he had in 2021, at which point cardiac cath was performed. Patient was noted to have nonobstructive CAD at that time. Next line-I discussed options with patient's, including proceeding with coronary angiography. Patient states that his symptoms are rare, and overall he is doing well. At this time, will start patient on Imdur 30 mg daily with plans to uptitrate as needed. Patient is instructed to contact cardiology if he has any worsening symptoms, at which point we can proceed with coronary angiography. He voices understanding. -Echo with preserved EF -Continue current antihypertensive regimen. -Continue atorvastatin 40 mg daily for HLD. Patient does not want to increase to 80 mg -Optimize medical management -Aggressive risk factor modification -Plan of care discussed with patient. All questions were answered. Patient voices understanding and is agreeable with current plan. -Patient was educated on red flag symptoms. Strict return precautions were provided. Patient verbalizes understanding -Follow-up in cardiology clinic Past Medical History: Diagnosis Date Coronary artery disease Hyperlipidemia Hypertension Sleep apnea Past Surgical History: Procedure Laterality Date CARDIAC CATHETERIZATION Patient Active Problem List Diagnosis Angina pectoris Cardiovascular stress test abnormal Dyspnea Mixed hyperlipidemia Actinic keratosis Constipation Cystoid macular edema following cataract surgery, unspecified eye Encounter for fitting and adjustment of hearing aid Essential (primary) hypertension Hearing loss History of severe acute respiratory syndrome coronavirus 2 (SARS-CoV-2) disease Mild chronic obstructive pulmonary disease (CMS/HCC) Myopia, bilateral Morbid obesity (CMS/HCC) Osteoarthritis Sensorineural hearing loss, bilateral Sleep apnea Encounter for screening, unspecified Seborrheic dermatitis family history includes Cancer in his father and mother; Coronary artery disease in his father. Social History Tobacco Use Smoking status: Former Types: Cigarettes Smokeless tobacco: Never Substance Use Topics Alcohol use: Yes Comment: occasional OBJECTIVE Visit Vitals BP 124/66 (BP Location: Right arm, Patient Position: Sitting) Pulse 64 Ht 1.88 m (6' 2 ) Wt 129 kg (285 lb) SpO2 97% BMI 36.59 kg/m??? Smoking Status Former BSA 2.6 m??? Physical Exam Constitutional: General Appearance: well-developed, appears stated age. Level of Distress: no acute distress. Neck: Jugular Veins: normal jugular venous pressure. Lungs: Auscultation: no rales or rhonchi and normal breath sounds. Cardiovascular: Rate And Rhythm: regular Heart Sounds: normal S1 and s2; Systolic Murmur: not heard. Diastolic Murmur: not heard. Extremities: no edema Peripheral Pulses: Pulses: full and equal in all extremities except if noted. Abdomen: Inspection and Palpation: non distended or tender and soft. Musculoskeletal: Inspection: no joint tenderness or swelling. Neurologic: Gait: normal gait. Psychiatric: Mental Status: alert and normal affect. Skin: Inspection and Palpation: warm and dry. Allergies: No Known Allergies Outpatient Medications: Current Outpatient Medications (more content not included)... [facility] Progress note 03-29-2024 Note Date & Type Note Facility 03-29-2024 Note [facility] Follow Up Progress Note HPI: Scott Garner is a 68 y.o. male With a past medical history including hypertension, hyperlipidemia, and mild to moderate nonobstructive CAD. He presents to cardiology clinic for routine follow-up. During his previous appointment, patient complained of chest pain during his trip to [place]. Stress and echo were obtained. Stress test demonstrated a large transmural inferior infarct, which has been seen on patient's previous stress tests. No reversible ischemia. Echo without acute abnormality. EF normal. Today, patient States that he is doing well overall. He does complain of rare chest tightness with exertion. He states that it is mild, and it is much improved from previous, when he had his heart catheterization. He denies any dyspnea or dyspnea on exertion. He denies any lower extreme edema, orthopnea, or paroxysmal nocturnal dyspnea. Overall, he is pleased with how he is doing. He has been active and has not been having any major issues. Cardiology ROS: 10 point ROS is performed and is negative unless otherwise specified in HPI. Medications Current Outpatient Medications on File Prior to Visit Medication Sig Dispense Refill aspirin 81 mg chewable tablet Chew 81 mg 1 (one) time. atorvastatin (Lipitor) 40 mg tablet Take 1 tablet (40 mg) by mouth at bedtime. 90 tablet 3 linaCLOtide (Linzess) 72 mcg capsule Linzess 72 mcg capsule TAKE 1 CAPSULE BY MOUTH EVERY DAY lisinopril 10 mg tablet TAKE 1 TABLET BY MOUTH EVERY DAY IN THE MORNING 90 tablet 3 metoprolol tartrate (Lopressor) 25 mg tablet TAKE 1/2 TABLET BY MOUTH TWICE A DAY 90 tablet 3 Spiriva Respimat 2.5 mcg/actuation inhaler INHALE 2 PUFFS INTO THE LUNGS EVERY DAY FOR 30 DAYS traZODone (Desyrel) 50 mg tablet at bedtime. No current facility-administered medications on file prior to visit. Allergies Patient has no known allergies. Physical Exam VITAL SIGNS: There were no vitals taken for this visit. Constitutional: Well developed, Well nourished, No acute distress, Non-toxic appearance. HENT: Normocephalic, Atraumatic, Bilateral external ears have normal appearance, Bilateral TMs clear, Oropharynx moist, No oral or pharyngeal exudates, Nose appears normal, nares are patent. Eyes: PERRLA, EOMI, Conjunctiva normal, No discharge. Neck: Normal range of motion, No tenderness, Supple, No stridor. No cervical lymphadenopathy noted. Cardiovascular: Normal heart rate, Normal rhythm, No murmurs, No rubs, No gallops. Thorax & Lungs: Normal breath sounds, No respiratory distress, No wheezing, No chest tenderness to palpation. Abdomen: Bowel sounds normal, Soft, Nontender, No masses, No pulsatile masses. Skin: Warm, Dry, No erythema, No rash. Back: No tenderness, No CVA tenderness. Extremities: Intact distal pulses, No edema, No tenderness, No cyanosis, No clubbing. Musculoskeletal: Good range of motion in all major joints with 5/5 muscle strength in all muscle groups, No tenderness to palpation or major deformities noted. Neurologic: Alert & oriented x 3, Normal motor function in all major muscle groups, Normal sensory function to all major dermatomes, No focal deficits noted. Psychiatric: Affect normal, Judgment normal, Mood normal. 07/22/21 Echo LVSF normal EF 65% Normal Rt sided pressures No significant valvular abnormalities 07/24/21 [facility] Laboratory Report PROCEDURES PERFORMED: 1. Coronary angiography. 2. Right heart catheterization. FINAL IMPRESSIONS: 1. Nonobstructive CAD. 2. Normal right-sided pressures. RECOMMENDATIONS: 1. Optimization of medical management for nonobstructive CAD: Aspirin, high-intensity statin, beta odalys. CORONARY ARTERIES: 1. Left main coronary artery: [...] stenosis in the midportion of the vessel. Impression: -HTN: well controlled -HLD: on statin -Non obstructive CAD: no reversible ischemia from previous Plan: -Stress without evidence of reversible ischemia. Patient was noted to have inferior defect that is fixed, similar to what he had in 2021, at which point cardiac cath was performed. Patient was noted to have nonobstructive CAD at that time. Next line-I discussed options with patient's, including proceeding with coronary angiography. Patient states that his symptoms are rare, and overall he is doing well. At this time, will start patient on Imdur 30 mg daily (more content not included)... [facility] Progress note 10-23-2023 Note Date & Type Note Facility 10-23-2023 Note [facility] Follow Up Progress Note HPI: Scott Garner is a 68 y.o. male With a past medical history including hypertension, hyperlipidemia, and mild to moderate nonobstructive CAD. He presents to cardiology clinic for routine follow-up. During his previous appointment, patient complained of chest pain during his trip to [place]. Stress and echo were obtained. Stress test demonstrated a large transmural inferior infarct, which has been seen on patient's previous stress tests. No reversible ischemia. Echo without acute abnormality. EF normal. Today, patient states that he feels well. He has not had any recurrence of chest pain. Patient adamantly denies any cardiac complaints or concerns. Patient denies any chest pain or shortness of breath. Patient denies any lower extremity edema, orthopnea, or proximal nocturnal dyspnea. No near-syncope or syncope. No dizziness or lightheadedness. Cardiology ROS: 10 point ROS is performed and is negative unless otherwise specified in HPI. Medications Current Outpatient Medications on File Prior to Visit Medication Sig Dispense Refill aspirin 81 mg chewable tablet Chew 81 mg 1 (one) time. linaCLOtide (Linzess) 72 mcg capsule Linzess 72 mcg capsule TAKE 1 CAPSULE BY MOUTH EVERY DAY lisinopril 10 mg tablet TAKE 1 TABLET BY MOUTH EVERY DAY IN THE MORNING 90 tablet 3 metoprolol tartrate (Lopressor) 25 mg tablet TAKE 1/2 TABLET BID 90 tablet 3 Spiriva Respimat 2.5 mcg/actuation inhaler INHALE 2 PUFFS INTO THE LUNGS EVERY DAY FOR 30 DAYS traZODone (Desyrel) 50 mg tablet at bedtime. No current facility-administered medications on file prior to visit. Allergies Patient has no known allergies. Physical Exam VITAL SIGNS: BP (!) 140/40 (BP Location: Right arm, Patient Position: Sitting) Pulse 59 Ht 1.88 m (6' 2 ) Wt 131 kg (288 lb) SpO2 96% BMI 36.98 kg/m??? Constitutional: Well developed, Well nourished, No acute distress, Non-toxic appearance. HENT: Normocephalic, Atraumatic, Bilateral external ears have normal appearance, Bilateral TMs clear, Oropharynx moist, No oral or pharyngeal exudates, Nose appears normal, nares are patent. Eyes: PERRLA, EOMI, Conjunctiva normal, No discharge. Neck: Normal range of motion, No tenderness, Supple, No stridor. No cervical lymphadenopathy noted. Cardiovascular: Normal heart rate, Normal rhythm, No murmurs, No rubs, No gallops. Thorax & Lungs: Normal breath sounds, No respiratory distress, No wheezing, No chest tenderness to palpation. Abdomen: Bowel sounds normal, Soft, Nontender, No masses, No pulsatile masses. Skin: Warm, Dry, No erythema, No rash. Back: No tenderness, No CVA tenderness. Extremities: Intact distal pulses, No edema, No tenderness, No cyanosis, No clubbing. Musculoskeletal: Good range of motion in all major joints with 5/5 muscle strength in all muscle groups, No tenderness to palpation or major deformities noted. Neurologic: Alert & oriented x 3, Normal motor function in all major muscle groups, Normal sensory function to all major dermatomes, No focal deficits noted. Psychiatric: Affect normal, Judgment normal, Mood normal. 07/22/21 Echo LVSF normal EF 65% Normal Rt sided pressures No significant valvular abnormalities 07/24/21 [facility] Cardiovascular Laboratory Report PROCEDURES PERFORMED: 1. Coronary angiography. 2. Right heart catheterization. FINAL IMPRESSIONS: 1. Nonobstructive CAD. 2. Normal right-sided pressures. RECOMMENDATIONS: 1. Optimization of medical management for nonobstructive CAD: Aspirin, high-intensity statin, beta odalys. CORONARY ARTERIES: 1. Left main coronary artery: [...] stenosis in the midportion of the vessel. Impression: -HTN: well controlled -HLD: on statin -Non obstructive CAD: no reverisb Plan: -Stress without evidence of ischemia -Echo with preserved EF -No recurrence of chest pain -Continue current antihypertensive regimen. -Continue atorvastatin 40 mg daily for HLD. Patient does not want to increase to 80 mg -Optimize medical management -Aggressive risk factor modification -Plan of care discussed with patient. All questions were answered. Patient voices understanding and is agreeable with current plan. -Patient was educated on red flag symptoms. Strict return precautions were provided. Patient verbalizes understanding -Follow-up in cardiology clinic Ankit (more content not included)... [facility] Progress note 09-11-2023 Note Date & Type Note Facility 09-11-2023 Note [facility] Follow Up Progress Note HPI: Scott Garner is a 68 y.o. male With a past medical history including hypertension, hyperlipidemia, and mild to moderate nonobstructive CAD. He presents to cardiology clinic for routine follow-up. Patient here for 1 year follow up dyspnea and hyperlipidemia. He was in [place] from Apr-Jun and says he had some chest pain when he'd go for walks. Would sometimes have to stop due to SOB. C/o cough and wheezing. He has been dealing with upper respiratory tract infection. He denies any symptoms prior to URI. No lower extremity edema, orthopnea, or PND. No near syncope or syncope. Cardiology ROS: Review of Systems Cardiovascular: Positive for chest pain, dyspnea on exertion and palpitations ( not often ). Respiratory: Positive for cough and wheezing. Musculoskeletal: Positive for arthritis, back pain and joint pain. All other systems reviewed and are negative. Medications Current Outpatient Medications on File Prior to Visit Medication Sig Dispense Refill aspirin 81 mg chewable tablet Chew 81 mg 1 (one) time. atorvastatin (Lipitor) 40 mg tablet TAKE 1 TABLET BY MOUTH AT BEDTIME 90 tablet 3 linaCLOtide (Linzess) 72 mcg capsule Linzess 72 mcg capsule TAKE 1 CAPSULE BY MOUTH EVERY DAY lisinopril 10 mg tablet TAKE 1 TABLET BY MOUTH EVERY DAY IN THE MORNING 90 tablet 3 metoprolol tartrate (Lopressor) 25 mg tablet TAKE 1/2 TABLET BID 90 tablet 3 traZODone (Desyrel) 50 mg tablet at bedtime. No current facility-administered medications on file prior to visit. Allergies Patient has no known allergies. Physical Exam VITAL SIGNS: There were no vitals taken for this visit. Constitutional: Well developed, Well nourished, No acute distress, Non-toxic appearance. HENT: Normocephalic, Atraumatic, Bilateral external ears have normal appearance, Bilateral TMs clear, Oropharynx moist, No oral or pharyngeal exudates, Nose appears normal, nares are patent. Eyes: PERRLA, EOMI, Conjunctiva normal, No discharge. Neck: Normal range of motion, No tenderness, Supple, No stridor. No cervical lymphadenopathy noted. Cardiovascular: Normal heart rate, Normal rhythm, No murmurs, No rubs, No gallops. Thorax & Lungs: Normal breath sounds, No respiratory distress, No wheezing, No chest tenderness to palpation. Abdomen: Bowel sounds normal, Soft, Nontender, No masses, No pulsatile masses. Skin: Warm, Dry, No erythema, No rash. Back: No tenderness, No CVA tenderness. Extremities: Intact distal pulses, No edema, No tenderness, No cyanosis, No clubbing. Musculoskeletal: Good range of motion in all major joints with 5/5 muscle strength in all muscle groups, No tenderness to palpation or major deformities noted. Neurologic: Alert & oriented x 3, Normal motor function in all major muscle groups, Normal sensory function to all major dermatomes, No focal deficits noted. Psychiatric: Affect normal, Judgment normal, Mood normal. 07/22/21 Echo LVSF normal EF 65% Normal Rt sided pressures No significant valvular abnormalities 07/24/21 [facility] Cardiovascular Laboratory Report PROCEDURES PERFORMED: 1. Coronary angiography. 2. Right heart catheterization. FINAL IMPRESSIONS: 1. Nonobstructive CAD. 2. Normal right-sided pressures. RECOMMENDATIONS: 1. Optimization of medical management for nonobstructive CAD: Aspirin, high-intensity statin, beta odalys. CORONARY ARTERIES: 1. Left main coronary artery: [...] stenosis in the midportion of the vessel. Impression: -HTN: well controlled -HLD: on statin -Non obstructive CAD: Complains of recent chest pain and shortness of breath Plan: -Given recent chest pain and shortness of breath, prudent to rule out ischemia -Will obtain Lexiscan stress test to rule out ischemia -Will obtain echo to assess LVEF, wall motion, and valvular function -Continue current antihypertensive regimen. -Continue atorvastatin 40 mg daily for HLD. Patient does not want to increase to 80 mg -Optimize medical management -Aggressive risk factor modification -Plan of care discussed with patient. All questions were answered. Patient voices understanding and is agreeable with current plan. -Patient was educated on red flag symptoms. Strict return precautions were provided. Patient verbalizes understanding -Follow-up in cardiology clinic Thank you for allowing us to participate in the car (more content not included)... [facility] Evaluation note Note Date & Type Note Facility Evaluation note No assessment information availa ble [facility] Work Phone: Reason for referral (narrative) Note Date & Type Note Facility Reason for referral (narrative) No reason for referral information available [facility] Work Phone: Summary Purpose Family History No Family History Records FoundNo Family History Records FoundNo Family History Records FoundNo Family History Records Found Advance Directives No Advanced Directives Records Found Advance Directive Response Recorded Date/ Time Advance Directives No November 24 2:01pm Chief Complaint and Reason for Visit Chief Complaint Admit Date J44.9 November 29, 2024 12: 24pm Additional Source Comments (unrecognized sect ion and content) No Status Records FoundNo Status Records FoundNo Status Records FoundNo Status Records Found INFORMATION SOURCE (unrecogn ized section and content) DATE CREATED AUTHOR 07/30/2021 [facility] DATE CREATED AUTHOR AUTHOR'S ORGANIZ ATION 10/14/2021 [facility] DATE CREATED AUTHOR AUTHOR'S ORGANIZ ATION 08/07/2024 [facility] DATE CREATED AUTHOR AUTHOR'S ORGANIZ ATION 01/29/2025 [facility] Care Teams (unrecognized sec tion and content) Team Status: Active Member Role Status Dates Durga Landin MD Primary Care Provider Active Team Status: Active Member Role Status Dates Durga Landin MD Primary Care Provider Active Start: November 29, 2024 Gil Mo MD Attending Provider Active Start: November 29, 2024 Gil Mo MD Other Provider Active Start: November 29, 2024 Goals (unrecognized section and content) Goals may be documented in a n alternate section FOR RECORDS PERTAINING TO PATIENTS WHO ARE [...] BE BASED ON THE PRIMARY CLINICAL RECORDS. [facility]. provides no warranty or guarantee of the accuracy or completeness of information in this document.
[2025-01-30 09:36] LABS: Hematocrit 33.1 % (42.0-54.0); Hemoglobin 11.5 g/dL (14.0-18.0); Immature Granulocytes Abs Auto 0.02 10^3/uL (0.00-0.03); Immature Granulocytes Pct Auto 0.4 % (0.0-0.5); Lymphocytes Absolute Auto 1.1 10^3/uL (1.2-3.8); Mean Corpuscular HGB Conc 34.7 g/dL (29.9-35.2); Mean Corpuscular Hemoglobin 34.4 pg (25.9-34.0); Mean Corpuscular Volume 99.1 fL (80.0-94.0); Platelet Count 134 10^3/uL (150-450); Red Blood Count 3.34 10^6/uL (4.70-6.10); White Blood Count 5.7 10^3/uL (4.0-11.0)
[2025-01-30 10:12] LABS: Alanine Aminotransferase 24 U/L (16-63); Albumin Globulin Ratio 1.0; Albumin Level 3.4 g/dL (3.4-5.0); Alkaline Phosphatase 67 U/L (46-116); Anion Gap 10.8; Aspartate Amino Transferase 15 U/L (15-37); Blood Urea Nitrogen 24.0 mg/dL (7.0-18.0); Calcium 8.2 mg/dL (8.5-10.1); Carbon Dioxide 25.7 mmol/L (21.0-32.0); Chloride 107 mmol/L (98-107); Estimated GFR (African America >60 (>=60 mL/min/1.73m^2); Estimated GFR (Non-African Ame 56 (>=60 mL/min/1.73m^2); Globulin 3.4 g/dL; Glucose 121 mg/dL (74-106); Potassium 4.5 mmol/L (3.5-5.1); Sodium 139 mmol/L (136-145); Total Protein 6.8 g/dL (6.4-8.2)
== END 2025-01-30 09:16 | disposition home or self-care (01) ==
PROVIDERS: PCP Family Medicine; Visit Provider Family Medicine
DX: R10.9 Unspecified abdominal pain (principal)
CPT/HCPCS: 36415; 80053; 85025

== ENCOUNTER 2025-03-20 15:05 | Outpatient (OUT) | payer MEDICARE, SELFPAY ==
--- OUTSIDE RECORDS SUMMARY | 2025-03-20 15:10 | XMS_ITS | Clinical Summary ---
Author Organization [facility] Address [address] [place] [address] Care Team Providers Care Repair Cameraman Name Role Phone Camacho Landin MD Primary Care Provider [phone] Allergies No known active allergies Medications MedicationSigDispense QuantityRefillsLast FilledStart DateEnd DateStatus aspirin 81 mg chewable tablet Chew 81 mg 1 (one) time.Active linaCLOtide (Linzess) 72 mcg capsule Linzess 72 mcg capsule TAKE 1 CAPSULE BY MOUTH EVERY DAYActive traZODone (Desyrel) 50 mg tablet at bedtime.Active Spiriva Respimat 2.5 mcg/actuation inhaler INHALE 2 PUFFS INTO THE LUNGS EVERY DAY FOR 30 DAYS08/12/2023ctive isosorbide mononitrate ER (Imdur) 30 mg 24 hr tablet Indications:Chest pain, unspecified typeTake 1 tablet (30 mg) by mouth in the morning. Do not crush or chew. 90 tablet /5Active benzonatate (Tessalon) 100 mg capsule Take 1 capsule by mouth every 8 (eight) hours if needed for cough.08/31/2023 Active zolpidem (Ambien) 10 mg tablet Take 10 mg by mouth if needed at bedtime.09/11/2023ctive lisinopril 10 mg tablet Indications:Essential hypertensionTake 1 tablet (10 mg) by mouth in the morning. 90 tablet /6Active atorvastatin (Lipitor) 40 mg tablet Indications:Mixed hyperlipidemiaTAKE 1 TABLET BY MOUTH AT BEDTIME 90 tablet 5Active magnesium gluconate 12.5 mg magne- sium (250 mg) tablet Take 1 tablet by mouth in the morning.5Active sertraline (Zoloft) 50 mg tablet Take 50 mg by mouth in the morning.5Active metoprolol tartrate (Lopressor) 25 mg tablet Indications:Cardiovascular stress test abnormal,Angina pectoris,Dyspnea on exertionTAKE 1/2 TABLET BY MOUTH TWICE A DAY 90 tablet 5Active metoprolol tartrate (Lopressor) 25 mg tablet Indications:Cardiovascular stress test abnormal,Angina pectoris,Dyspnea on exertionTAKE 1/2 TABLET BY MOUTH TWICE A DAY 90 tablet Discontinued(Reorder) Active Problems ProblemNoted DateDiagnosed FmbhDavzzhj71/29/5681Tblnkdoujs35/29/2025Insomnia 01/23/2025Pain in right foot01/23/2025Encounter for screening, unspecified 03/29/2024Seborrheic nemlgjhfza87/03/2024ctinic zuhoiecor56 Txikaajrntke30ystoid macular edema following cataract surgery, unspecified eye/Encounter for fitting and adjustment of hearing aid/Essential (primary) vqoxsmcnltee21/17/2024 09/11/2023Hearing lossHistory of severe acute respiratory syndrome coronavirus 2 (SARS-CoV-2) twoocqv64/Mild chronic obstructive pulmonary pggjsqk69Myopia, /17/2024 09/11/2023Morbid /4770Lolibrmwyoavir73/17/202405/17/2024 Sensorineural hearing loss, wdnqwgqlu55Sleep apnea09/11/2023 09/11/2023ngina tfpuuvkn15/18/2022 Assessment & Plan (08/29/2022 2:30 PM EDT): currently resolved Cardiovascular stress test mvycfhtc67/18/2830Fppyzaq94/18/2022 Assessment & Plan (08/29/2022 2:29 PM EDT): Stable and no worsening symptoms Mixed uvovlgufsytsvq55/18/2022 Assessment & Plan (08/29/2022 2:30 PM EDT): States he has annual labs at the [facility] Last LDL 57 and Chol 123- well controlled Continue statin Encounters DateTypeDepartmentCare AqdeMpamcyjqzye40/18/2025Refill [facility] [place] [address] [place] [address] Renae Garcia MA Cardiovascular stress test abnormal; Angina pectoris; Dyspnea on ygghjcdy29/01/2025 10:40 AM EDTOffice Visit [facility] [address] [place] [address] Gil Watson MD Right flank pain (Primary Dx); Essential hypertension; Coronary artery disease involving wiyot coronary artery of wiyot heart without angina pectorisfrom Last 3 Months Family History Medical HistoryRelationNameCommentsCancerFatherCoronary artery diseaseFather CancerMotherRelationNameStatusCommentsBrotherDeceasedFatherDeceasedMother DeceasedSisterDeceased Social History Tobacco UseTypesPacks/DayYears UsedDateSmoking Tobacco: FormerCigarettes Smokeless Tobacco: Never Tobacco Cessation:Counseling Given: Not Answered Alcohol UseStandard Drinks/WeekCommentsYes0 (1 standard drink = 0.6 oz pure alcohol)occasionalUT Safety & EnvironmentAnswerDate RecordedFear of Current or Ex-PartnerNot on file06/18/2023Emotionally AbusedNot on file06/18/2023hysically AbusedNot on file06/18/2023Sexually AbusedNot on file06/18/2023hysically or Sexually AbusedNot on file06/18/2023Sex and Gender InformationValueDate Recorded Sex Assigned at YvruoJuuf12/30/2025 10:03 AM EDTLegal HnzRnym2710/23/2021 10:56 PM EDTGender MvqrmqgmKqqv97/30/2025 10:02 AM EDTSexual OrientationHeterosexual or Cczoutki79/25/2025 11:16 AM EDT Last Filed Vital Signs Vital SignReadingTime TakenCommentsBlood Gpuegkxc230/5501/25/2025 10:32 AM EDT Jkvvi409101/25/2025 10:32 AM EDTTemperature--Respiratory Rate--Oxygen Saturation 97%01/25/2025 10:32 AM EDTInhaled Oxygen Concentration--Cucugy075 kg (280 lb) 01/25/2025 10:32 AM EOGZnmhzg144 cm (6' 2 )01/25/2025 10:32 AM EDTBody Mass Index35.9501/25/2025 10:32 AM EDT Plan of Treatment Health MaintenanceDue DateLast DoneCommentsCT Cyvrjawmtsdu28/07/1956olonoscopy 1955olorectal Cancer Qxkreisjo18/07/1956FIT-DNA1955FIT1955 FOBT1955Medicare Annual Wellness (AWV)1955 4646Slsvccdocklhq12/07/1956 Depression Jhelajvfa61/07/1968Fall Risk Atnhpfqco39/07/2021OVID-19 Vaccine ( season)501/2Adult Njjvqey61Zoster ScvyhmioDavnlofsc82/21/2022, 1Pneumococcal Vaccine: 50+ YearsCompleted 11/11/2022, 01/02/2021Influenza IrzrwvgTizwdousa79/29/2025, 01/26/2024, 12/26/2022, Additional history existsHIB VaccinesAged OutNo longer eligible based on patient's age to complete this topicHPV VaccinesAged OutNo longer eligible based on patient's age to complete this topicIPV VaccinesAged OutNo longer eligible based on patient's age to complete this topicMeningococcal B VaccineAged OutNo longer eligible based on patient's age to complete this topic Meningococcal VaccineAged OutNo longer eligible based on patient's age to complete this topicRotavirus VaccinesAged OutNo longer eligible based on patient's age to complete this topic Insurance Care Teams Team MemberRelationshipSpecialtyStart DateEnd Camacho Landin MD [address] [place] [address] PCP - Zeazbht96/31/22
--- OUTSIDE RECORDS SUMMARY | 2025-03-20 15:10 | XMS_ITS | Clinical Summary ---
Author Organization [facility] Address [address] [place] [address] Care Team Providers Care Housekeeper/Laundry Assistant Name Role Phone Unavailable Primary Care Provider Unavailabl e Social History Tobacco UseTypesPacks/DayYears UsedDateSmoking Tobacco: Never AssessedSex and Gender InformationValueDate RecordedSex Assigned at BirthNot on fileLegal Sex Male07/09/2022 6:57 PM EDTGender IdentityNot on fileSexual OrientationNot on file Plan of Treatment Not on file
--- OUTSIDE RECORDS SUMMARY | 2025-03-20 15:10 | XMS_ITS | Encounter Summary ---
Author Organization [facility] Address [address] [place] [address] Care Team Providers Care Battalion Chief Name Role Phone Camacho Landin MD Primary Care Provider [phone] Reason for Visit * ReasonOnset DateCommentsMed Qapuro6803/14/2025 Encounter Details DateTypeDepartmentCare Team (Latest Contact Info)Hzvinuytyqt68/18/2025Refill [facility] [place] [address] [place] [address] Renae Garcia MA Cardiovascular stress test abnormal; Angina pectoris; Dyspnea on exertion Social History Tobacco UseTypesPacks/DayYears UsedDateSmoking Tobacco: FormerCigarettes Smokeless Tobacco: NeverAlcohol UseStandard Drinks/WeekCommentsYes0 (1 standard drink = 0.6 oz pure alcohol)occasionalUT Safety & EnvironmentAnswerDate Recorded Fear of Current or Ex-PartnerNot on file06/18/2023Emotionally AbusedNot on file 06/18/2023hysically AbusedNot on file06/18/2023Sexually AbusedNot on file 4Physically or Sexually AbusedNot on file06/18/2023Sex and Gender InformationValueDate RecordedSex Assigned at EoygyLucr65/30/2025 10:03 AM EDT Legal OmkRitz1610/23/2021 10:56 PM EDTGender QezcbilwNpmf02/30/2025 10:02 AM EDT Sexual OrientationHeterosexual or Mzucnfow63/25/2025 11:16 AM EDTdocumented as of this encounter Plan of Treatment Not on file documented as of this encounter Visit Diagnoses Diagnosis Cardiovascular stress test abnormal Angina pectoris Other and unspecified angina pectoris Dyspnea on exertion Other dyspnea and respiratory abnormality documented in this encounter Care Teams Team MemberRelationshipSpecialtyStart DateEnd Date Camacho Landin MD [address] [facility] [place] [address] PCP - Ailogow49/31/22documented as of this encounter
--- OUTSIDE RECORDS SUMMARY | 2025-03-20 15:15 | XMS_ITS | CCD ---
Author Organization [facility] CliniSyut Care Team Providers Care List Of First Job Ideas Name Role Phone ZULEYKA WALKER Admitting Unavailable ZULEYKA WALKER Attending Unavailable DURGA LANDIN Primary Care Unavailable DURAG LANDIN Referring Unavailable HOY, DR CALIXTO Primary [...] Primary Care Unavailable ADAN, RELL Consulting Unavailable Durga Landin MD Primary Care Provider Meryl Mo MD Attending Provider Meryl Mo MD Other Provider [phone] Meryl Mo Admitting Unavaila Meryl Ceballos Attending Unavaila ble Durga Landin Primary Care Unavailable MERYL PAULINO Attending Unavailable KAREN ORELLANA Attending Unavailable ZULEYKA WALKER Attending Unavailable Mushtaq PRESLEY, Durga Mcmahon Primary Care Provider [phone] Ean PRESLEY, Matteo Villalba Attending Provider Medications Current Medications MedicationDrug Class(es)DatesSig (Normalized)Sig (Original)[id number] 200 actuat albuterol 0.09 mg/actuat metered dose inhaler (1 source)beta2-Adrenergic AgonistStart: 24-40-0117ftmh 1 puff(s) by inhalation every four to six hours as neededAlbuterol Sulfate 90 mcg/actuation HFA aerosol inhaler Active 2 PUFF INHALATION EVERY 4-6 HOURS as needed March 01, 2025 12:00am Complies with drug therapyaspirin 81 mg delayed release oral tablet (1 source)Platelet Aggregation Inhibitor, Nonsteroidal Anti-inflammatory Drug Start: 32-23-6431Fiuqmla (Adult Low Dose Aspirin) 81 mg tablet,delayed release (DR/EC) Active 81 MG PO Daily March 01, 2025 12:00am Complies with drug therapyatorvastatin 40 mg oral tablet (1 source)HMG-CoA Reductase InhibitorStart: 94-44-0928vdxd 1 tablet by mouth once dailyAtorvastatin 40 mg tablet Active 40 MG PO Daily March 01, 2025 12:00am Complies with drug therapyCpap (Continuous Positive Airway Pressure) unit (1 source)Start: 13-52-5018Nzum (Continuous Positive Airway Pressure) unit Active 0 .ROUTE March 01, 2025 12:00am As directeddiclofenac sodium 75 mg delayed release oral tablet (1 source)Nonsteroidal Anti-inflammatory DrugStart: 12-41-0227mupj 1 tablet by mouth once as neededDiclofenac Sodium 75 mg tablet,delayed release (DR/EC) Active 75 MG PO Once as needed February 12:00am Complies with drug therapylinaclotide 0.072 mg oral capsule (2 sources)Guanylate Cyclase-C AgonistStart: 03-01-2025 End: 47-13-3145adac 1 capsule by mouth once daily as neededLinaclotide (Linzess) 72 mcg capsule Active 72 MCG PO Daily as needed March 01, 2025 2:11pm Comp lies with drug therapymetoprolol tartrate 25 mg oral tablet (2 sources)beta-Adrenergic BlockerStart: 06-84-1210Ahispgifpd Tartrate 25 mg tablet Active 12.5 MG PO Twice daily March 01, 2025 2:11pm Complies with drug therapyStart: 03-01-2025 End: 28-19-8589kdaq 1 tablet by mouth twice dailyMetoprolol Tartrate 25 mg tablet Discontinued 25 MG PO Twice daily March 01, 2025 12:00am March 01, 2025 2:11pm7 actuat umeclidinium 0.0625 mg/actuat / vilanterol 0.025 mg/actuat dry powder inhaler (1 source)Anticholinergic, beta2-Adrenergic AgonistStart: 03-01-2025 Umeclidinium-Vilanterol (Anoro Ellipta) 62.5-25 mcg/actuation blister with device Active 1 INH INHALATION Daily 60 30 12 March 01, 2025 12:00am Complies with drug therapyzolpidem tartrate 10 mg oral tablet (1 source)gamma-Aminobutyric Acid-ergic AgonistStart: 30-31-7906uvwn 1 tablet by mouth once daily at bedtime as neededZolpidem 10 mg tablet Active 10 MG PO Daily at bedtime as needed March 01, 2025 12:00am Complies with drug therapy Completed/Discontinued Medications MedicationDrug Class(es)DatesSig (Normalized)Sig (Original)lisinopril 10 mg oral tablet (1 source)Angiotensin Converting Enzyme InhibitorStart: 03-01-2025 End: 85-82-9622plgu 1 tablet by mouth once dailyLisinopril 10 mg tablet Discontinued 10 MG PO Daily March 01, 2025 12:00am March 01, 2025 2:10pm Problems Active Problems Problem ClassificationProblemDateDocumented DateEpisodic/ChronicChronic obstructive pulmonary disease and bronchiectasis (2 sources)Chronic obstructive lung disease; Translations: [Chronic obstructive pulmonary disease, unspecified]18-25-6771LjxsraoMkhvsbko atherosclerosis and other heart disease (3 sources)Unstable angina; Translations: [Atherosclerotic heart disease of [place] coronary artery without angina pectoris]Onset: 64-40-9594IasegdgHohbocagp of lipid metabolism (1 source)Mixed hyperlipidemia; Translations: [MIXED HYPERLIPIDEMIA]Onset: 94-20-3232ZjveidhZhziurmzz hypertension (2 sources)Essential (primary) hypertension; Translations: [Essential (primary) hypertension]Onset: 27-10-6494EdshlcnEgfmnjggbocnz and screening for infectious disease (1 source)Encounter for immunization; Translations: [ENCOUNTER FOR IMMUNIZATION] Onset: 35-34-4965ByhlwrrrHhoszdcnemo chest pain (4 sources)Chest pain, unspecified; Translations: [CHEST PAIN UNSPECIFIED]Onset: 28-50-1040PfmeotrxVpiul circulatory disease (1 source)Other specified symptoms and signs involving the circulatory and respiratory systems; Translations:[OTH SPEC SX SIGNS INVLV CIRC RS]Onset: 06-50-1195RucwmqtaMnlmt lower respiratory disease (5 sources)Shortness of breath; Translations: [SHORTNESS OF BREATH]Onset: 65-24-2602ZvehfgwmFiaka lower respiratory disease (5 sources)Other forms of dyspnea; Translations: [OTHER FORMS OF DYSPNEA]Onset: 54-27-0127ChhmmespXetieqafwxhk (1 source)COUGH, UNSPECIFIED; Translations: [COUGH, UNSPECIFIED]Onset: 26-22-9474Xtgtmdwcfblb (3 sources)CONTACT W/AND (SUSP) EXPOS COVID-19; Translations: [CONTACT W/AND (SUSP) EXPOS COVID-19]Onset: 12-51-1881Zrxhhzhdlhny (1 source)Flank pain, right side; Translations: [Flank pain, right side]Onset: 03-82-7129Oqfmw infection (4 sources)COVID-19; Translations: [COVID-19]Onset: 10-11-2021 Past or Other Problems Problem ClassificationProblemDateDocumented DateEpisodic/ChronicUnclassified (1 source)CONTACT W/AND (SUSP) EXPOS COVID-19; Translations: [CONTACT W/AND (SUSP) EXPOS COVID-19]Onset: 84-32-4771Hulibseamdaj (1 source)Flank pain, right side; Translations: [Flank pain, right side]Onset: 01-25-2025 Results Test NameValueInterpretationReference RangeFacilityOffice Visiton 01-25-2025 Follow-up [id number] Scott Garner 1955 Date Provider Department [place] 01/25/2025 245-MERYL PAULINO MENDEZ [facility] Family History Problem Relation Age of Onset Cancer Mother Coronary artery disease Father Cancer Father Family Status - Relation Status Age at Mother Father Sister Brother Level of Service:89005 AR OFFICE/OUTPATIENT ESTABLISHED LOW MDM 20 MIN Reason for Visit and Comments: Follow-up [537597] - Patient is here today for a routine 6 month appointment. Patient complains of SOB, LUIS, recent fall, chest pain with exertion, fatigue, dizziness/lightheaded with position changes, right flank pain which radiates to right lower abdomen, racing heart/palpitations. Hyperlipidemia [182] Hypertension [750132] Chest Pain [953192]NormalGenesis HospitalXR chest 2V*on 28-72-2237KE chest 2V*[facility] Main [place] [address] [place] [address] XRay Report Signed Patient: Scott Garner MR#: [id number] 8 : 1955 Acct:[id number] Age/Sex: 69 / M ADM Date: 11/29/24 Loc: RT Room: Type: [facility] Attending Dr: Meryl Mo MD Copies to: Meryl Mo MD Ordering Provider: Meryl Mo MD Date of Service: 11/29/24 XR/XR chest 2V*: R06.02 - Shortness of breath PA AND LATERAL CHEST: CLINICAL HISTORY: Chest pain, short of breath COMPARISON: None FINDINGS: Unremarkable cardiomediastinal. Lungs are clear. No effusion or pneumothorax. XR/XR chest 2V* IMPRESSION: NO ACUTE CARDIOPULMONARY ABNORMALITY. Impression dictated by: Parmjit Galvan M.D. 11/29/2024 7:40 PM Dictation Location: [place] [address] Transcribed By: [facility] 11/29/241939 Dictated By: Parmjit Galvan MD 11/29/241938 Signed By: 11/29/241939[facility] Physician GroupOffice Visiton 30-94-3602Fxnfbi- up [id number] Scott Garner 1955 Date Provider Department Center 08/05/2024 [id number], ADAM MENDEZ [facility] Family History Problem Relation Age of Onset Cancer Mother Coronary artery disease Father Cancer Father Family Status - Relation Status Age at Mother Father Sister Brother Level of Service:80742 AR OFFICE/OUTPATIENT ESTABLISHED LOW MDM 20 [facility] 45-23-7520Axxswd-up visit [id number] Scott Garner 1955 M Date Provider Department Center 03/29/2024 3848[facility] Problem Relation Age of Onset Coronary artery disease Father Family Status - Relation Status Age at Father Level of Service:25977 AR OFFICE/OUTPATIENT ESTABLISHED LOW MDM 20 [facility] HospitalY[facility]OMATIC COVID-19 ANTIGENon 49-62-9983PJS StatementSWestern Reserve HospitalComment on above:Result Comment: This test has not been FDA [...] declaration is terminated or authorization is revoked sooner.Performed By: #### CVDAGS #### [facility] [address] [place] [address] Dr. Genia Rebolledo-CoV-2 (COVID-19) RNA ABA+probe Ql (Unsp spec)Positive Critically abnormalNEGATIVEThe Madison HealthComment on above:Performed By: #### CVDAGS #### [facility] [address] [address] [address] Genia MadrigalHEMOGLOBINon 48-45-9249Ckrdrwtwvb (Bld) [Mass/Vol]13.0 g/dL Critically low14.0-18.0The [facility] HealthComment on above:Performed By: #### HGB #### [facility] [address], [place] [address] Dr. Genia MadrigalCardiovascular Lab Reporton 36-18-5794Vtxkyvqcvuqipb Lab Report [facility] Patient Name: Scott Garner MR #: [id number] [facility] Center Physician: Zuleyka Walker MD Department of Service Date: 07/24/2021 Medicine Birthdate: 1955 Division of Room #: CC Cardiology Adult Cardiovascular Services [facility] [address] [facility]. [place], [place] [address] Cardiovascular Laboratory Report PROCEDURES PERFORMED: 1. Coronary [...] Walker MD Date Trans: 07/25/2021 04:47 A/neftaly DN_JN:[id number] cc: Durga Landin M.D. [address] [facility] [address]UqdvitOkhBarnesville HospitalBILIRUBIN CONJUGATED (DIRECT)on 80-86-9403TFAS, CONJUGATED0.2 mg/dLNormal0.0-0.3The [facility] HealthComment on above:Performed By: #### DBIL #### [facility] [address] [place] [address] Dr. Genia Slaughter-19 PCR (CVDTB)on 88-25-2738OSYW-CoV-2 (COVID-19) RNA ABA+probe Ql (Unsp spec)Not detectedNormalNOT DETECTEDThe [facility] Comment on above:Result Comment: When diagnostic testing is negative, the possibility of a false negative should be considered in the context of a patient's recent exposures and the presence of clinical signs and symptoms consistent with SARS-CoV-2. This test is not yet approved or cleared by the [place] Food and Drug Administration (FDA). This test was developed by [employer], [place], [place]. The performance characteristics of this test were validated by [facility]. The results are not intended to be used as the sole means for clinical diagnosis or patient management decisions. [facility] is authorized under Clinical Laboratory Improvement Amendments [...] for this test is supported by the Electrical Appliance Servicer of Health and Human Service's declaration that circumstances exist to justify the emergency use of in vitro diagnostics for the detection and/or diagnosis of the virus that causes COVID-19. This EUA will remain in effect for the duration of the COVID-19 declaration justifying emergency of IVDs, unless it is terminated or revoked by the FDA (after which the test may no longer be used).Performed By: #### CVDTBH #### [facility] [address] [place] [address] Dr. Genia MadrigalHEMOGRAM AND PLATELon 51-10-6880Zxpoympooz (Bld) [Volume fraction]37.9 %Critically low42.0-54.0The Madison HealthComment on above: Performed By: #### HH #### [facility] [address] [place] [address] Dr. Genia MadrigalHemoglobin (Bld) [Mass/Vol]13.3 g/dLCritically low14.0-18.0The [facility] HealthComment on above:Performed By: #### HH #### [facility] [address] [place] [address] Dr. Genia MadrigalMCAbigail (RBC) [Entitic mass]33.0 nuRklyoq19.9-34.0The [facility] HealthComment on above:Performed By: #### HH #### [facility] [address] [place] [address] Dr. Genia SantiagoHC (RBC) [Mass/Vol]35.1 g/qXXgrmvr94.9-35.2The [facility] HealthComment on above:Performed By: #### HH #### [facility] [address] [place] [address] Dr. Genia SantiagoV (RBC) [Entitic vol]94.0 zJXrsynb59.0-94.0The [facility] HealthComment on above:Performed By: #### HH #### [facility] [address] [place] [address] Dr. Genia MadrigalPLT169 103/bxQxmqtv087-795Xvp [facility] HealthCommymichigan medical center sault on above: Performed By: #### HH #### [facility] [address] [place] [address] Dr. Genia MadrigalRBC4.03 106/ulCritically low4.70-6.10The [facility] HealthComment on above:Performed By: #### HH #### [facility] [address] [place] [address] Dr. Genia MadrigalWBC6.0 103/ulNormal4.0-11.0The [facility] HealthComment on above: Performed By: #### HH #### [facility] [address] [place] [address] Dr. Genia MadrigalLIPID PROFILEon 40-35-6938YCIL-HDL RATIO [facility] Medical CenterComment on above:Result Comment: 3.3 - 4.4 LOW RISK 4.4 - 7.1 AVERAGE RISK 7.1 - 11.0 MODERATE RISK >11.0 HIGH RISKPerformed By: #### LIPID, CMP #### [facility] [address] [place] [address] Dr. Genia MadrigalCholesterol [Mass/Vol]117 mg/dLNormal<=200The [facility] Comment on above:Performed By: #### LIPID, CMP #### [facility] [address] [place] [address] Dr. Genia Brayesterol in HDL [Mass/Vol]49 mg/aEWwrasa31-81JhpMercy Health St. Vincent Medical CenterComment on above:Performed By: #### LIPID, CMP #### [facility] [address] [place] [address] Dr. Genia MadrigalCholesterol in LDL [Mass/Vol]52.8 mg/dLSumma Health Barberton CampusComment on above:Performed By: #### LIPID, CMP #### [facility] [address] [place] [address] Dr. Genia Velarde.total/Cholesterol in HDL [Mass ratio]2.4 {ratio} NormalMercy Health St. Vincent Medical CenterComment on above:Performed By: #### LIPID, CMP #### [facility] [address] [place] [address] Dr. Genia Kelsey NORMAL> or = 60 mg/dl - LOW CARDIOVASCULAR RISK <40 mg/dl - HIGH CARDIOVASCULAR RISKNoUniversity Hospitals Ahuja Medical CenterComment on above:Performed By: #### LIPID, CMP #### [facility] [address] [place] [address] Dr. Genia Torres CALC NORMALSEE BELOWSumma Health Barberton CampusComment on above:Result Comment: <100 mg/dl OPTIMAL 100 - 129 mg/dl NEAR OR ABOVE OPTIMAL 130 - 159 mg/dl BORDERLINE HIGH 160 - 189 mg/dl HIGH >190 mg/dl VERY HIGH Performed By: #### LIPID, CMP #### [facility] [address] [place] [address] Dr. Genia MadrigalTriglyceride [Mass/Vol]76 mg/dLNormal<=150The [facility] Comment on above:Performed By: #### LIPID, CMP #### [facility] [address] [place] [address] Dr. Genia MadrigalVLDL CALC15.2 mg/dLNoUniversity Hospitals Ahuja Medical CenterComment on above: Performed By: #### LIPID, CMP #### [facility] [address] [place] [address] Dr. Genia MadrigalPROF 14(COMP METB)on 30-11-6148Tpjgjvf [Mass/Vol]3.9 g/dLNormal 3.4-5.0The [facility] HealthComment on above:Performed By: #### LIPID, CMP #### [facility] [address] [place] [address] Dr. Genia MadrigalAlbumin/Globulin [Mass ratio]1.1 {ratio}NormalThe [facility] HealthComment on above:Performed By: #### LIPID, CMP #### [facility] [address] [address] [address] Genia Andrea [Catalytic activity/Vol]63 U/HDqwfds06-239Dxx [facility] HealthComment on above:Performed By: #### LIPID, CMP #### [facility] [address] [place] [address] Dr. Genia Corcoran [Catalytic activity/Vol]27 U/QDgnwvj99-89Kom [facility] HealthComment on above:Performed By: #### LIPID, CMP #### [facility] [address] [place] [address] Dr. Genia Hunter gap [Moles/Vol]12.2 mmol/LNormalThe [facility] Comment on above:Performed By: #### LIPID, CMP #### [facility] [address] [place] [address] Dr. Genia Garcia [Catalytic activity/Vol]21 U/BWvhglp90-81Iul [facility] HealthComment on above:Performed By: #### LIPID, CMP #### [facility] [address] [place] [address] Dr. Genia MadrigalBilirubin [Mass/Vol]0.8 mg/dLNormal0.2-1.3The [facility] Comment on above:Performed By: #### LIPID, CMP #### [facility] [address] [place] [address] Dr. Genia MadrigalCalcium [Mass/Vol]8.1 mg/dLCritically low8.5-10.1The [facility] HealthComment on above:Performed By: #### LIPID, CMP #### [facility] [address] [place] [address] Dr. Genia MadrigalChloride [Moles/Vol]107 mmol/KChiwlj57-255Mev [facility] Comment on above:Performed By: #### LIPID, CMP #### [facility] [address] [place] [address] Dr. Genia MadrigalCO2 [Moles/Vol]26.8 mmol/QReenzo94.0-30.0[facility] Comment on above:Performed By: #### LIPID, CMP #### [facility] [address] [place] [address] Dr. Genia MadrigalCreatinine [Mass/Vol]1.19 mg/dLNormal0.66-1.25The [facility] HealthComment on above:Performed By: #### LIPID, CMP #### [facility] [address] [place] [address] Dr. Genia CernaGFR-AF MONGOLIAN>60Normal>=60The [facility] HealthComment on above:Performed By: #### LIPID, CMP #### [facility] [address] [place] [address] Dr. Genia CernaGFR-NON AF MONGOLIAN>60Normal>=60The [facility] HealthComment on above:Performed By: #### LIPID, CMP #### [facility] [address] [place] [address] Dr. Genia MadrigalGlobulin (S) [Mass/Vol]3.5 g/dLNormalThOhioHealth Doctors HospitalComment on above:Performed By: #### LIPID, CMP #### [facility] [address] [place] [address] Dr. Genia MadrigalGlucose [Mass/Vol]98 mg/iQKioasw19-666QtnMercy Health St. Vincent Medical Center Comment on above:Performed By: #### LIPID, CMP #### [facility] [address] [place] [address] Dr. Genia MadrigalPotassium [Moles/Vol]4.0 mmol/LNormal3.4-5.0The [facility] Comment on above:Performed By: #### LIPID, CMP #### [facility] [address] [place] [address] Dr. Yilan ChangProtein [Mass/Vol]7.4 g/dLNormal6.1-8.2[facility] Comment on above:Performed By: #### LIPID, CMP #### [facility] [address] [address] [address] Genia MadrigalSodium [Moles/Vol]142 mmol/PAqcanp134-113Xbw [facility] Comment on above:Performed By: #### LIPID, CMP #### [facility] [address] [address] [address] Genia MadrigalUrea nitrogen [Mass/Vol]27.0 mg/dLCritically high7.0-18.0Mercy Health St. Vincent Medical CenterComment on above:Performed By: #### LIPID, CMP #### [facility] [address] [place] [address] Dr. Genia Ibarra nitrogen/Creatinine [Mass ratio]22.7 mg/mgNormalThOhioHealth Doctors HospitalComment on above:Performed By: #### LIPID, CMP #### [facility] [address] [place] [address] Dr. Genia CernaCHOCARDIShivani M/2D COMPLETEon 77-75-5214UEUBOIJOCV M/2D COMPLETE Patient: SCOTT GARNER Exam Date: 07/19/2021 : 1955 Gender:M Ordering : RELL ARELLANO Admission #: [id number] Family : Order #: [id number] CLICK HERE TO VIEW EXAM ECHOCARDIOGRAM REPORT [...] Area(A4C): 20.80 cm2 Left Atrium Systolic Volume(A2C): 67395 mm3 Left Atrium Systolic Volume(A4C): 06812 mm3 Mitral Valve MV E to A [...] by: Gordo Bahena M.D. on 07/22/2021 at 09:02[facility] CampusNM STRESS/REST MULTIon 93-87-8277YT STRESS/REST MULTIPatient: SCOTT GARNER Exam Date: 07/11/2021 : 1955 Gender:M Ordering : DR DURGA LANDIN . Admission #: [id number] Family : Order #: [id number] CLICK HERE TO VIEW EXAM RADIOLOGY REPORT [...] by: Win Flynn MD on 07/12/2021 at 09:16[facility] Vital Signs Date TimeVital SignValuePerforming EcjkuymizEdbtccbt15-86-5140 14:0500Body bbyqfx348.96 cmDurga Landin MD Work Phone: [facility]11-05-2025 14:09-0500 Body mass index (BMI) [Ratio]35.9 kg/y7TjwvmecDurga Landin MD Work Phone: [phone] [place], [place] [address]11-05-2025 14:09-0500 Body nqlqaw115 kgDurga Landin MD Work Phone: [phone]11-05-2025 14:09-0500 Diastolic blood fnpfeqva72 mm[Hg]Durga Landin MD Work Phone: [phone] [place], [place] 320[address]11-05-2025 14:09-0500 Heart rate62 /West Landin MD Work Phone: [phone] [place], [place] [address]11-05-2025 14:09-0500 Respiratory rate20 /West Landin MD Work Phone: [phone]11-05-2025 14:09-0500 SaO2% (BldA) [Mass fraction]97 %Durga Landin MD Work Phone: [phone] [place], [place] [address]11-05-2025 14:09-0500 Systolic blood zdhhplye975 mm[Hg]Durga Landin MD Work Phone: [phone] [place] [address] Encounters Encounter DateEncounter TypeCare ProviderFacilityStart: 03-01-2025 End: 23-74-8728xecawppuzaWqhpzzp M Hoy MD Work Phone: [phone]-Yczlpaffi Health PulmonaryStart: 03-01-2025 End: 33-14-5384Eeubone encounter procedureKettering Health Hamiltonmisty Mckoy MD-[facility] Work Phone: Start: 01-25-2025 End: 84-65-7214bfgvxautyhKHZRKFYKGLO [facility] Start: 11-29-2024 End: 15-19-7680roquoifkslMflkvxfassc E AvendanoFacility:[facility] Campustart: 10-92-8177Oht-patient / Non-visitChristopher E Chely PRESLEY- [facility] Work Phone: Start: 08-05-2024 End: 88-37-1309pgawfqwnolJHBI [facility] Hospitaltart: 03-29-2024 End: 16-43-3533kkoqjebiyyGCYEBYF [facility] Start: 10-11-2021 End: 02-18-0885axmclhexzzXT DURGA HOYFacility:H6Cfpwg: 10-09-2021 End: 75-79-6616khmopikbhhZZ DURGA HOYFacility:I2Jcosj: 09-16-2021 End: 88-40-1492dhqykqtsqbAX DURGA HOYFacility:A3Ypuni: 59-54-4909Chledwuhp for other preprocedural examinationMELISSA [facility] Healthtart: 07-24-2021 End: 75-40-6114raymoyypxxVAOKMDI ALGHOTHANIFacility:UTMCStart: 07-22-2021 End: 66-15-2991casyepjrpxYFYFAJA BOESFacility:V0Gxynx: 07-22-2021 End: 23-24-5020Lbhitsylp for other preprocedural examinationMELISSA ADAN Facility:E6Fwytn: 07-19-2021 End: 97-30-0696lxmjsqmsryKFCWSJZ BOESFacility:I8Gkoai: 91-01-8729hczyfkrcotDK DURGA HOYFacility:D2Rnppe: 07-11-2021 End: 97-74-9102rwnmnzdcneKY DURGA HOYFacility:T6Bbjpq: 28-46-5077wzcyuyvejoKY DURGA HOYFacility:H1 Plan of Treatment Date[facility] Payers DatePayer CategoryPayerPolicy [id number] [id number] 2.16.840.1.217856.3.57[id number] 2.16.840.1.503876.3.57[id number] 2.16.840.1.266790.3.579.2.[id number] 2.16.840.1.233726.3.57[id number] 2.16.840.1.623991.3.57[id number] 2.16.840.1.877090.3.57[id number] 2.16.840.1.015735.3.57[id number] 2..0.1.762809.3.57[id number] 2.840.1.7[id number] 2.0.1.075441.3.579.2.531 Social History DateTypeDetailFacilityTobacco smoking status NHISUnknown if ever smokedMercy Health St. [facility]'S [facility] Center Work Phone: SexMale (finding)[facility] Start: 45-87-3196Stl Assigned At [facility] Start: 70-42-7912Aghactj smoking status NHISEx-smoker (finding)[facility] Progress note 01-25-2025 Note Date & TjclAxlzKosoxctl38-16-7968 NoteSubjective Patient ID: Scott Garner is a 69 y.o. male who presents for Follow-up (Patient is here today for a routine 6 month appointment. Patient complains of SOB, LUIS, recent fall, chest pain with exertion, fatigue, dizziness/lightheaded with position changes, right flank pain which radiates to right lower abdomen, racing heart/palpitations.), Hyperlipidemia, Hypertension, and Chest Pain. OK pain in R groin into back. No chest pain, a little SOB with activity (run down to basement quick and back up) Able to ride a bike [place] to [place] and back without SOB. Hyperlipidemia Associated symptoms [...] Essential hypertension 3. Coronary artery disease involving [place] coronary artery of [place] heart without angina pectoris Orders Placed This Encounter Procedures Urinalysis Standing Status: Future Expected Date: 01/25/2025 Expiration Date: 01/25/2026 Release to Patient: Immediately No results found for this or any previous visit (from the past 36 hours). No follow-ups on file.[facility] Progress note 08-05-2024 Note Date & [id number] NoteSUBJECTIVE Reason for Visit: Soctt Garner is a 69 y.o. year old [...] and recently returned from annual trip to [place]. He denies chest pain, shortness of breath, palpitations, lightheadedness, or dizziness. He remains motivated to lose weight, which he has identified as a personal goal for the coming months including increasing exercise. He has no questions or concerns at this time. 03/29/2024 office visit (Dr. Walker): During his previous appointment, patient complained of chest pain during his trip to [place]. Stress and echo were obtained. Stress test [...] Medications: Current Outpatient Medications (more content not included)...[facility] Progress note 03-29-2024 Note Date & [id number] [facility] HPI: Scott Garner is a 68 y.o. male With a past medical history including hypertension, hyperlipidemia, and mild to moderate nonobstructive CAD. He presents to cardiology clinic for routine follow-up. During his previous appointment, patient complained of chest pain during his trip to [place]. Stress and echo were obtained. Stress test [...] Imdur 30 mg daily (more content not included)...[facility] Evaluation note Note Date & TypeNoteFacilityEvaluation noteNo assessment information available [facility] Work Phone: Reason for referral (narrative) Note Date & TypeNoteFacilityReason for referral (narrative)No reason for referral information availableHigh[facility] Work Phone: Summary Purpose Family History Relationship Condition Age at Onset Recorded Date/T brendan father Malignant neoplasm Unknown motherMalignant neoplasmUnknown Advance Directives Advance Directive Response Recorded Date/ Time Advance Directives No November 24 2:01pm Advance Directive Response Recorded Date/ Time Advance Directives No November 24 1:01pm Chief Complaint and Reason for Visit Chief Complaint Admit Date J44.9 November 29, 2024 12: 24pm Chief Complaint Admit Date Transfer of Care from [facility] COPD March 01, 2025 2:03pm Additional Source Comments (unrecognized sect ion and content) No Status Records FoundNo Status Records FoundNo Status Records FoundNo Status Records Found INFORMATION SOURCE (unrecogn ized section and content) DATE CREATED AUTHOR 07/30/2021 [facility] DATE CREATED AUTHOR AUTHOR'S ORGANIZ ATION 10/14/2021 [facility] DATE CREATED AUTHOR AUTHOR'S ORGANIZ ATION 01/29/2025 [facility] DATE CREATED AUTHOR AUTHOR'S ORGANIZ ATION 01/30/2025 [facility] Care Teams (unrecognized sec tion and content) Team Status: Active Member Role Status Dates Durga Landin MD Primary Care Provider Active Team Status: Active Member Role Status Dates Durga Landin MD Primary Care Provider Active Start: November 29, 2024 Meryl Mo MDAttending ProviderActiveStart: November 29, 2024 Brittanie Noel ProviderActiveStart: November 29, 2024 Team Status: Active Member Role/Relationship Status Dates Durga Landin MD Primary Care Provider Active Team Status: Inactive Member Role/Relationship Status Dates Durga Landin MD Primary Care Provider Active Start: March 01, 2025 End: March 01[facility] Cm Villalba Marita Mckoy ProviderActiveStart: March 01, 2025 End: March 01, 2025 Goals (unrecognized section and content) Goals may be documented in a n alternate sectionGoals may be documented in an alternate section FOR RECORDS PERTAINING TO PATIENTS [...] BE BASED ON THE PRIMARY CLINICAL RECORDS. [facility]. provides no warranty or guarantee of the accuracy or completeness of information in this document.
--- NOTE | 2025-03-20 15:24 | XR_ITS ---
The [address] [address] Patient Name: SCOTT SMITH MRN: [id number] date: 1955 Sex: M Assigned Patient Location: [facility] Current Patient Location: [facility] Accession/Order Number: [id number] Exam Date: 03/20/2025 15:24 Report Date: 03/20/2025 16:34 At the request of: DURGA FAIR MD Procedure: XR ankle RT 2V XR ankle RT 2V 03/20/2025 3:29 PM SIGNS AND SYMPTOMS: ^Right foot pain PROTOCOL: 2 views of the right ankle COMPARISON: None FINDINGS: The ankle mortise is preserved. There is spurring along the anterior and posterior aspect of the talus with a well-corticated ossific structure separate from the medial and lateral malleolus suggesting previous avulsive-type injuries. There is diffuse soft tissue swelling. No acute displaced fracture. Plantar and Achilles surface calcaneal spurring is noted. Degenerative changes are noted at the talonavicular joint and in the midfoot. XR/XR ankle RT 2V IMPRESSION: No acute displaced fracture. Diffuse soft tissue swelling is noted. Chronic changes are noted as above. Impression dictated by: Андрей Lehman M.D. 03/20/2025 4:34 PM Dictation Location: [place] [address] Electronically authenticated by: [id number] Y Date: 03/20/2025 16:34
== END 2025-03-20 15:06 | disposition home or self-care (01) ==
PROVIDERS: PCP Family Medicine; Visit Provider Family Medicine
DX: M79.671 Pain in right foot (principal); M25.471 Effusion, right ankle
CPT/HCPCS: 73600

== ENCOUNTER 2025-04-10 14:09 | Outpatient (RCR) | payer MEDICARE, SELFPAY | END 2025-04-19 10:27 | disposition home or self-care (01) | LOC: PT 14:09 | PROVIDERS: PCP Family Medicine; Visit Provider Family Medicine | DX: M54.50 Low back pain, unspecified (principal) | CPT/HCPCS: 97113; 97162 ==